=== PATIENT | male | born 1975 | race Caucasian/White ===

== ENCOUNTER 2021-03-20 23:49 | Inpatient (IN) | payer OTHER, SELFPAY ==
[2021-03-20 23:50] VITALS: BP 194/98; PULSE 93; RESP 16; TEMP 36.8; O2SAT 88; BMI 34.9
[2021-03-20 23:54] VITALS: O2SAT 92
[2021-03-21] VITALS (37 sets, daily range): BP systolic 157–175; BP diastolic 73–106; PULSE 78–108; RESP 12–50; TEMP 36–36.8; O2SAT 87–96; BMI 35.5
--- NOTE | 2021-03-21 00:23 | RAD_ITS ---
STUDY: X-RAY CHEST REASON FOR EXAM: Male, 45 years old. Dyspnea TECHNIQUE: Single AP portable view of the chest. COMPARISON: None. FINDINGS: The lungs are normally distended. There is density in the right lower lobe most likely representing confluence of markings, cannot exclude early infiltrate. Remainder of the lung crum are clear. There is no demonstrated pleural abnormality. Normal size heart. Normal mediastinum and keily. Normal visualized pulmonary arteries. Normal visualized aortic arch and descending thoracic aorta. Normal visualized thoracic spine. Normal visualized ribs, clavicles, and shoulders. There is no demonstrated abnormality of the visualized soft tissue structures of the upper abdomen. RAD/Chest 1 View (Portable) IMPRESSION: Likely confluence of markings in the right lower lobe, cannot exclude early infiltrate. Clinical correlation recommended. Remainder of the exam unremarkable. Electronically Signed: Fanny Erickson MD at 2:06 EDT , Service support ,
--- NOTE | 2021-03-21 00:27 | ED.VIS.DYS ---
HPI History of Present Illness Chief Complaint: Shortness of Breath Informant: patient Onset/Context/Timing Onset: Yesterday Context: gradual Timing: Continuous Quality: Positive for Dyspnea on exertion and Wheezing Worsened by: Exertion Relieved by: Albuterol Associated Symptoms rhinorrhea, post nasal drip and sore throat; Negative for cough, fever, subjective or chills Chest Pain: Positive for Pressure Narrative Narrative: Patient presents with shortness of breath that has been getting worse since yesterday. Patient states he ran out of his albuterol inhaler and his home nebulizer broke. Patient states he gets short of breath with any exertion. Patient also states he feels like he is wheezing. Patient states albuterol seems to help with his breathing. Patient also admits to some sinus drainage which started 2 days ago and seem to trigger his asthma exacerbation. Patient does admit to some chest pressure. Patient also admits to some rhinorrhea. Patient states he has not received his COVID-19 vaccine. Patient denies any exposures to COVID-19. [facility] Medical History Asthma COPD (chronic obstructive pulmonary disease) Diabetes Home Medications atorvastatin 80 mg PO QHS 03/21/21 [History Last Taken Unknown] carvedilol 25 mg PO DAILY 03/21/21 [History Last Taken Unknown] lisinopril 40 mg PO DAILY 03/21/21 [History Last Taken Unknown] metformin 1,000 mg PO DAILY 03/21/21 [History Last Taken Unknown] Allergy/AdvReac Type Severity Reaction Status Date / Time No Known Allergies Allergy Verified 03/21/21 01:00 no surgical history Social History Smoking Status: Current every day smoker tobacco type: cigarettes ROS ROS ED Constitutional Constitutional ED: Denies chills or fever(s) Eyes Eyes: Denies blurry vision or change in vision ENT ENT ED: Reports rhinorrhea and sore throat Cardiovascular Cardiovascular: Reports chest pain; Denies palpitations Respiratory/Chest Respiratory/Chest: Reports dyspnea; Denies cough Gastrointestinal Gastrointestinal: Denies nausea or vomiting Genitourinary Genitourinary ED: Denies dysuria or hematuria Musculoskeletal Musculoskeletal: Denies back pain or neck pain Integumentary Denies abscess or rash Neurologic Neurologic: Denies headache(s) or weakness Allergic/Immunologic Allergic/Immunologic ED: Denies mouth swelling or urticaria EXAM Physical Exam Const Vital Signs: 03/20/21 23:50 03/20/21 23:54 03/21/21 00:38 Temperature 98.3 F Temperature Source Temporal Pulse Rate 93 85 Respiratory Rate 16 24 H Respiratory Effort Short of Breath Labored Respiratory Depth Normal Shallow Respiratory Pattern Normal Tachypnea Blood Pressure 194/98 H Blood Pressure Mean 130 Pulse Ox 88 88 Oxygen Delivery Method Room Air Room Air Room Air 03/21/21 00:58 Temperature Temperature Source Pulse Rate Respiratory Rate Respiratory Effort Respiratory Depth Respiratory Pattern Blood Pressure Blood Pressure Mean Pulse Ox 90 Oxygen Delivery Method Room Air Positive well nourished and well developed General Appearance ED: well developed HEENT Reports moist mucous membranes Neck supple and no JVD Resp normal respiratory effort Auscultation: wheezes expiratory wheezes and throughout Cardio regular rate, regular rhythm and no murmurs GI normal to inspection, nondistended, normoactive bowel sounds and non-tender Palpation: soft Extremity normal to inspection General Extremety ED: Negative for edema or tenderness General Extremity: Negative for edema Neuro oriented x3, CN's II-XII intact bilaterally and no sensory deficits noted Sensorium / Orientation: alert Motor Exam: strength 5/5 throughout Psych mental status grossly normal Skin no rashes or lesions noted MDM MDM MDM Narrative Medical decision making narrative: Arterial blood gas showed a pH of 7.309, PCO2 58.2, PO2 of 48.2, bicarb of 29.3, and O2 sat of 78.7 on room air. Patient was placed on a 50% Ventimask. Portable chest x-ray was obtained. There is 1 view. On my interpretation, there is a questionable right lower lobe infiltrate. Bony thorax is normal. There is no cardiomegaly. Radiologist also interpreted the x-ray and agrees. CBC shows a hemoglobin of 18.4 hematocrit 54.5. White blood cell count is normal. Comprehensive metabolic profile was essentially within normal limits. Lactate was normal. Blood cultures were obtained. Patient was started on Rocephin and Zithromax. Case was discussed with the hospitalist. She will admit the patient to her service. Patient understood and was agreeable with the plan. All questions were answered. Lab Data Attestation: I reviewed the patient's lab results. Labs: Laboratory Results - last 24 hr 03/21/21 03/21/21 03/21/21 00:45 00:45 00:45 WBC 9.5 RBC 5.95 Hgb 18.4 H* Hct 54.5 H MCV 91.6 MCH 30.9 MCHC 33.8 RDW Std Deviation 48.0 H RDW Coeff of Lindsey 14.1 Plt Count 182 MPV 10.2 Immature Gran % (Auto) 1.300 H Neut % (Auto) 79.8 H Lymph % (Auto) 10.3 L Bel[place] % (Auto) 8.1 Eos % (Auto) 0.0 Baso % (Auto) 0.5 Absolute Neuts (auto) 7.6 Absolute Lymphs (auto) 0.97 Nucleated RBC % 0 Diff Path Review May foll Sodium 134 L Potassium 4.2 Chloride 101 Carbon Dioxide 29.0 Anion Gap 4 L BUN 13 Creatinine 1.07 Estim Creat Clear Calc 106.39 Est GFR (MDRD) Af Amer 97 Est GFR (MDRD) Non-Af 80 BUN/Creatinine Ratio 12.1 Glucose 218 H Lactic Acid 0.6 Calcium 8.6 Total Bilirubin 0.70 AST 19 ALT 38 Alkaline Phosphatase 108 Total Protein 7.2 Albumin 3.2 Globulin 4.0 Albumin/Globulin Ratio 0.8 L ABG Data ABG results: ABG 03/21/21 00:56 Specimen Type ART Sample Site R Radial pH 7.31 L Bicarbonate Actual 29.3 H Total CO2 31 Base Excess 3 H O2 Saturation 79 L O2 % 21 ABG pCO2 58.2 H ABG pO2 48 L Nitin Test Positive O2 Delivery Device Room Air Radiography Chest X-Ray - ED: 1 View, Read by ED Physician, Read by Radiologist and Right Infiltrate Diagnostic Testing: Radiology Impression Chest X-Ray 03/21/21 00:23 IMPRESSION: Likely confluence of markings in the right lower lobe, cannot exclude early infiltrate. Clinical correlation recommended. Remainder of the exam unremarkable. Electronically Signed: Fanny Erickson MD at 2:06 EDT , Service support , Treatment and Re-Evaluation Vital Sign Attestation:: Vital signs were reviewed prior to admission. They are stable. Discharge Plan Dx/Rx/DC Orders Clinical Impression: Pneumonia, Hypoxia Disposition Disposition: Acute Care Hospital [facility]
[2021-03-21] MEDS: Albuterol 2.5 MG/3 ML VIAL.NEB. INHALATION ×3 (00:38→00:51)
[2021-03-21] MEDS: MethylPREDNISolone 125 MG/2 ML Vial 80 MG IV (00:47)
[2021-03-21 00:57] LABS: Absolute Lymphocyte Count 0.97 X10^3/uL (0.83-4.51); Absolute Neutrophil Count 7.6 X10^3/uL (2.0-7.7); Basophil# 0.05 X10^3/uL; Basophil% 0.5 % (0-1); Hematocrit 54.5 % (40-54); Hemoglobin 18.4 g/dL (13.0-16.5); Lymphocyte # 0.97 X10^3/ul (0.83-4.51); Lymphocyte % 10.3 % (19-41); Mean Corp Hgb Conc 33.8 g/dL (32-36); Mean Corpuscular Hgb 30.9 pg (27.0-32.0); Mean Corpuscular Volume 91.6 fL (80-94); Mean Platelet Vol. 10.2 fl (6.2-12.0); Monocyte# 0.77 X10^3/uL; Monocyte% 8.1 % (0-10); NRBC Flagged by Analyzer 0 % (0-5); Neutrophil # 7.55 X10^3/uL (2.7-7.7); Neutrophil % 79.8 % (47-70); Platelet Count 182 K/mm3 (150-450); RBC Distribution Width CV 14.1 % (11.6-14.6); Red Blood Count 5.95 M/mm3 (4.6-6.2)
[2021-03-21 01:06] LABS: Allen Test Positive; Base Excess 3 mmol/L (-2 to +2); Bicarbonate 29.3 mmol/L (22-26); Blood Gas Specimen Type ART; FI02 21; O2 Delivery Device Room Air; PO2 48 mmHG (75-100); SITE R Radial; SO2 79 % (95-99); Total Carbon Dioxide 31 mmol/L; pCO2 58.2 mmHg (35-45); pH 7.31 (7.35-7.45)
[2021-03-21 01:22] LABS: ALB/GLOB Ratio 0.8 RATIO (0.9-2.4); AST(SGOT) 19 U/L (15-37); Alanine Aminotransfer ALT/SGPT 38 U/L (16-61); Albumin, Serum 3.2 g/dL (3.2-5.0); Alkaline Phosphatase 108 U/L (45-117); Anion Gap 4 (5-15); BUN 13 mg/dL (7-18); BUN/Creat Ratio 12.1 RATIO (10-20); Calcium,Total 8.6 mg/dL (8.5-10.1); Chloride 101 mmol/L (98-107); Creatinine, Serum 1.07 mg/dL (0.70-1.30); EST Glomerular Filtration Rate 80 mL/min (>60); Est Glom Filt Rate - Afr Amer 97 mL/min (>60); Estimated Creatinine Clearance 106.39 ml/min; Glucose 218 mg/dL (74-106); Potassium 4.2 mmol/L (3.5-5.1); Protein, Total 7.2 g/dL (6.4-8.2); Sodium Level 134 mmol/L (136-145)
[2021-03-21 01:23] LABS: Differential Indicated SCAN CRITERIA MET; White Blood Count 9.5 K/mm3 (4.4-11.0)
[2021-03-21 01:42] LABS: Lactic Acid 0.6 mmol/L (0.4-1.9)
--- NOTE | 2021-03-21 02:36 | PCM.HP.STD ---
HPI - General General Date of Service: 03/21/21 Chief Complaint: Dyspnea, wheezing. HPI Narrative The patient is a 45 y/o M w/ PMHx: Asthma/COPD, Diabetes mellitus type II, Obesity, HTN, HLD, Tobacco use who presents to the [facility] ED on 03/21/21 with worsening shortness of breath over the last 48 hours noting to have run out of his out of albuterol inhaler with a nonfunctioning nebulizer at home with ongoing wheezing, worse with any exertion with mild rhinorrhea, postnasal drip and sore throat as well as chest tightness but no recent cough, fever, chills prompting eventual ED evaluation. Patient denies having received his COVID-19 vaccination. Is a cross country truck driver living in [place] and notes that he started having issues when he was driving through [place] with history of notable allergies/sinus issues. Work-up in the ED included T 98.3, heart rate 93, BP 194/98, respiratory rate 16-22, initially 88% on room air with improvement to 90% on room air, CBC with WBC 9.5, hemoglobin 18.4, platelet 182 with increased immature granulocytes, ABG with pH 7.31, bicarb 29.3, base excess 3, O2 saturation 79%, PCO2 58.2, PO2 48 performed on room air, CMP with sodium 134, glucose 218 otherwise not marked appearing hepatic profile, lactic acid 0.6, chest x-ray with likely confluence of markings right lower lobe however cannot exclude early infiltrate otherwise unremarkable, rapid SARS Covid antigen negative. In the ED patient ministered DuoNeb/albuterol therapies and Solu-Medrol regimen. [facility] Medical History Asthma COPD (chronic obstructive pulmonary disease) Diabetes HLD (hyperlipidemia) HTN (hypertension) Obesity Tobacco use Home Medications atorvastatin 80 mg PO QHS 03/21/21 [History Last Taken Unknown] carvedilol 25 mg PO DAILY 03/21/21 [History Last Taken Unknown] lisinopril 40 mg PO DAILY 03/21/21 [History Last Taken Unknown] metformin 1,000 mg PO DAILY 03/21/21 [History Last Taken Unknown] Allergy/AdvReac Type Severity Reaction Status Date / Time No Known Allergies Allergy Verified 03/21/21 01:00 Family History (Updated 03/21/21 @ 02:[address] Mone Contreras MD) Mother Heart disease Hypertension other (Patient does not know his father nor any of his paternal family history.) no surgical history Social History (Updated 03/21/21 @ 02:[address] Mone Contreras MD) household members: other details: Patient lives in [place] with his aunt. He is a truckdriver. Smoking Status: Current every day smoker tobacco type: cigarettes Smoking packs per day: 0.75 Smoking cigarettes per day: 15.0 Years smoked: 29 Smoking pack-years: 21.75 alcohol intake: never substance use type: does not use ROS ROS Narrative Admission Review of Systems: CONSTITUTIONAL: No weight loss, fever, chills, + weakness or fatigue. HEENT: Eyes: No visual loss, blurred vision, double vision or yellow sclerae. Ears, Nose, Throat: + sneezing, congestion, runny nose. No hearing loss or sore throat. SKIN: No rash or itching, lesions, wounds. CARDIOVASCULAR: No chest pain, chest pressure or chest discomfort, palpitations, edema, orthopnea, syncopal events. RESPIRATORY: + shortness of breath, wheezing, no marked cough, sputum, hemoptysis. GASTROINTESTINAL: No anorexia, nausea, vomiting or diarrhea, abdominal pain, melena, BRBPR. GENITOURINARY: No dysuria, frequency, urgency or retention. NEUROLOGICAL: No headache, dizziness, syncope, paralysis, ataxia, numbness or tingling in the extremities, focal weakness, change in bowel or bladder control, seizure. MUSCULOSKELETAL: No muscle, back pain, joint pain or stiffness. HEMATOLOGIC: No anemia, bleeding or bruising. LYMPHATICS: No enlarged nodes. No history of splenectomy. PSYCHIATRIC: No history of depression or anxiety. ENDOCRINOLOGIC: No reports of sweating, cold or heat intolerance. No polyuria or polydipsia. ALLERGIES: No history of asthma, hives, eczema or rhinitis. Vital Signs Vital Signs Vital Signs: 03/20/21 23:50 03/20/21 23:54 03/21/21 00:38 Temperature 98.3 F Temperature Source Temporal Pulse Rate 93 85 Respiratory Rate 16 24 H Respiratory Effort Short of Breath Labored Respiratory Depth Normal Shallow Respiratory Pattern Normal Tachypnea Blood Pressure 194/98 H Blood Pressure Mean 130 Pulse Ox 88 88 Oxygen Delivery Method Room Air Room Air Room Air 03/21/21 00:58 Temperature Temperature Source Pulse Rate Respiratory Rate Respiratory Effort Respiratory Depth Respiratory Pattern Blood Pressure Blood Pressure Mean Pulse Ox 90 Oxygen Delivery Method Room Air Weight Weight: 280 lb Body Mass Index (BMI) 34.9 Physical Exam Narrative Physical Examination: General: Awake, alert, oriented x 3 and cooperative, seated upright in the ED bed, increased work of breathing, accessory muscle usage, tripod position, oxygenation despite Ventimask mid 80s. Skin: Normal color, normal turgor, no icterus, no cyanosis except noted bilateral lower extremity venous stasis skin changes. HEENT: AT/NC, EOMI, PERRLA, moderately dry MM, no carotid bruits or JVD noted; however, habitus with thickened neck makes examination difficult. Lungs: Diffusely diminished, greater bases, end expiratory diffuse wheezing, increased work of breathing, accessory muscle usage, evident distress, no rales or rhonchi. Heart: Mildly tachycardic with regular rhythm; no gallop, rub audible. Abdomen: Soft, obese, NTTP, ND, distant normal BS, no obvious HSM; however, habitus makes examination difficult. Extremities: No cyanosis, clubbing, or edema. See skin, venous stasis skin changes. Neurological: Patient awake, alert, oriented as noted, cognitive function intact; pupils equally reactive to light and accommodation, cranial nerves II-XII grossly normal, moving all 4 extremities, no focal deficits, strength severely global decrease secondary to acute presentation. Psychiatric: Affect appears fatigued, evident respiratory distress, no acute evidence of depressive or anxiety feelings. Results Lab / Micro Data Result Diagrams: 03/21/21 00:45 03/21/21 00:45 Labs: Laboratory Results - last 24 hr 03/21/21 00:45: WBC 9.5, RBC 5.95, Hgb 18.4 H*, Hct 54.5 H, MCV 91.6, MCH 30.9, MCHC 33.8, RDW Std Deviation 48.0 H, RDW Coeff of Lindsey 14.1, Plt Count 182, MPV 10.2, Immature Gran % (Auto) 1.300 H, Neut % (Auto) 79.8 H, Lymph % (Auto) 10.3 L, Wright % (Auto) 8.1, Eos % (Auto) 0.0, Baso % (Auto) 0.5, Absolute Neuts (auto) 7.6, Absolute Lymphs (auto) 0.97, Nucleated RBC % 0, Diff Path Review December03/21/21 00:45: Sodium 134 L, Potassium 4.2, Chloride 101, Carbon Dioxide 29.0, Anion Gap 4 L, BUN 13, Creatinine 1.07, Estim Creat Clear Calc 106.39, Est GFR (MDRD) Af Amer 97, Est GFR (MDRD) Non-Af 80, BUN/Creatinine Ratio 12.1, Glucose 218 H, Calcium 8.6, Total Bilirubin 0.70, AST 19, ALT 38, Alkaline Phosphatase 108, Total Protein 7.2, Albumin 3.2, Globulin 4.0, Albumin/Globulin Ratio 0.8 L 03/21/21 00:45: Lactic Acid 0.6 Micro: Microbiology 03/21/21 00:55 Mucosa - Nose SARS-CoV-2 Antigen (Rapid) - Final ABG Data ABG results: ABG 03/21/21 00:56 Specimen Type ART Sample Site R Radial pH 7.31 L Bicarbonate Actual 29.3 H Total CO2 31 Base Excess 3 H O2 Saturation 79 L O2 % 21 ABG pCO2 58.2 H ABG pO2 48 L Nitin Test Positive O2 Delivery Device Room Air Radiology Impression Chest X-Ray 03/21/21 00:23 IMPRESSION: Likely confluence of markings in the right lower lobe, cannot exclude early infiltrate. Clinical correlation recommended. Remainder of the exam unremarkable. Electronically Signed: Fanny Erickson MD at 2:06 EDT , Service support , Assessment & Plan Assessment/Plan (1) Respiratory failure: QUALIFIERS: Chronicity: acute Respiratory failure complication: hypoxia and hypercapnia Qualified Code(s): J96.01 - Acute respiratory failure with hypoxia; J96.02 - Acute respiratory failure with hypercapnia PLAN: The patient is a 45 y/o M w/ PMHx: Asthma/COPD, Diabetes mellitus type II, Obesity, HTN, HLD, Tobacco use who presents to the [facility] ED on 03/21/21 with worsening shortness of breath over the last 48 hours noting to have run out of his out of albuterol inhaler with a nonfunctioning nebulizer at home with ongoing wheezing, worse with any exertion with mild rhinorrhea, postnasal drip and sore throat as well as chest tightness but no recent cough, fever, chills prompting eventual ED evaluation. 1. Acute Hypoxic and Hypercarbic Respiratory Failure secondary to Acute on Chronic Asthma/COPD exacerbation: Will admit to the PCU, will place on BIPAP, continue ATC duonebs, PRN albuterol, IV methylprednisolone, HOB, IS parameters, obtain respiratory viral panel, antigens, sputum culture, procalcitonin and given presentation/history with non-vaccinated COVID status will be cautious and obtain COVID PCR testing. Will hold on abx therapy pending work-up as noted. Bld Cx x 2 pending per ED. 2. Elevated BP without hypertensive history: Significantly elevated BP upon presentation, will continue monitor and if remains elevated will initiate oral regimen, in the interim as needed IV agents. 3. Diabetes mellitus type II: Need to clarify regimen, will obtain HgbA1c, in the interim maintain ADA diet, accu checks w/ ISS. 4. Tobacco Abuse: Encouraged cessation, inpatient consultation per RT, NR if desired. 5. Obesity: Weight loss and lifestyle changes encouraged. 6. Hypertension: Continue home regimen including lisinopril, Coreg with hold parameters, PRN hydralazine. 7. Hyperlipidemia: Continue patient on statin therapy. 8. DVT prophylaxis: SCDs, Lovenox. Charges/Coding Visit Charges Inpatient E&M: 35063 Init Hosp L3
[2021-03-21 03:24] LABS: Procalcitonin 0.11 ng/mL (0.00-0.09)
[2021-03-21] MEDS: 0.9% Normal Saline 1,000 ML 100 ML IV (03:41)
[2021-03-21 04:44] LABS: Probe Check PASS; Specimen Processing Control PASS
--- NOTE | 2021-03-21 05:13 | CPS ---
pt keeps requesting to lower the pressure on bipap. RT turned down 04/04 50% will try once again to get pt to wear bipap. RN aware.
[2021-03-21] MEDS: LORazepam 2 MG/ML Syringe 1 MG IV (05:23)
[2021-03-21] MEDS: 0.9% Saline Lock 10 ML Syringe IV (05:23)
[2021-03-21] MEDS: hydrALAZINE 20 MG/ML Vial 10 MG IV ×2 (06:03→18:10)
[2021-03-21] MEDS: Insulin Lispro 100 UNIT/ML INSULN.PEN SC ×4 (06:49→20:52)
--- NOTE | 2021-03-21 06:51 | CON.PCM.CC_ITS ---
Assessment & Plan Assessment/Plan (1) Acute respiratory failure with hypoxia and hypercapnia: PLAN: RECOMMENDATIONS: 1. Stop continuous IV fluids. 2. Continue patient on noninvasive positive pressure ventilatory support. Wean as tolerated. 3. Continue scheduled bronchodilator therapy. 4. Continue IV steroids. 5. Continue antihypertensive regimen. 6. DVT prophylaxis with Lovenox. IMPRESSIONS: 1. Acute combined respiratory failure, likely secondary to COPD exacerbation precipitated by rhinovirus infection The patient presented to the hospital with worsening dyspnea, wheezing and chest tightness. The patient was subsequently found to be positive for rhinovirus. He is likely experiencing a COPD exacerbation triggered by the viral infection. At the current time, the patient will be continued on noninvasive positive pressure ventilatory support as tolerated. Scheduled bronchodilators and IV steroids will also be continued. Goal to maintain oxygen saturations at or above 90%. 2. Polycythemia Unclear chronicity. However, I do suspect that this may be secondary to chronic hypoxemia. 3. Chronic tobacco dependency I personally spent 4 minutes discussing the deleterious effects of continued tobacco use with the patient, including modalities which could utilize to achieve a smoke-free lifestyle. Nicotine replacement therapy can be offered to the patient while admitted to the hospital. 4. Hypertension/hyperlipidemia/diabetes mellitus/obesity Complicates care, management, recovery and prognosis. Continue home medications as indicated. This note was generated with [employer] dictation software. It may contain incorrect words, spelling, and punctuation that were not noted in checking the note before signing. HPI Consult Data Date of Consult: 03/21/21 HPI Narrative Reason for Consultation: Acute combined respiratory failure HPI Narrative: The patient is a 45-year-old male, with a history as outlined below, who presented to the emergency department on March 20 with complaints of shortness of breath. The patient is a current everyday smoker. He has never been evaluated by a effervescent salts compounder in the past nor has he ever completed pulmonary function studies. He denies having been diagnosed with COPD previously. 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 The patient does report that he has access to both albuterol MDI and a nebulizer at his baseline. However, he recently ran out of his albuterol in his nebulizer is no longer functional. On presentation to the emergency department, the patient was noted to be afebrile, but was notably hypertensive with a presenting blood pressure of 194/98 mmHg. Initial laboratory evaluation revealed a normal white blood cell count. Hemoglobin was elevated to 18.4 g/dL. Chemistry profile was notable for a sodium of 134 and creatinine of 1.07. Liver function was within normal limits. Procalcitonin was noted to be 0.11. Coronavirus PCR was negative. Arterial blood gas obtained on room air revealed a pH of 7.31, PCO2 of 58 and PO2 of 48. Chest x-ray demonstrated no acute cardiopulmonary process or focal consolidation. Respiratory viral panel was positive for rhinovirus. The patient was initiated on BiPAP and placed on scheduled aerosol treatments and IV steroids. He was subsequently admitted to the progressive care unit for further management. [facility] Medical History Asthma COPD (chronic obstructive pulmonary disease) Diabetes HLD (hyperlipidemia) HTN (hypertension) Obesity Tobacco use Home Medications albuterol sulfate 2 puff INHALATION Q4H PRN PRN 03/21/21 [History Last Taken Unknown] atorvastatin 80 mg PO QHS 03/21/21 [History Last Taken Unknown] carvedilol 25 mg PO DAILY 03/21/21 [History Last Taken Unknown] lisinopril 40 mg PO DAILY 03/21/21 [History Last Taken Unknown] metformin 1,000 mg PO DAILY 03/21/21 [History Last Taken Unknown] Allergy/AdvReac Type Severity Reaction Status Date / Time No Known Allergies Allergy Verified 03/21/21 01:00 Family History (Updated 03/21/21 @ 02:[address] Mone Contreras MD) Mother Heart disease Hypertension Social History (Updated 03/21/21 @ 02:[address] Mone Contreras MD) household members: other details: Patient lives in [place] with his aunt. He is a truckdriver. Smoking Status: Current every day smoker tobacco type: cigarettes Smoking packs per day: 0.75 Smoking cigarettes per day: 15.0 Years smoked: 29 Smoking pack- years: 21.75 alcohol intake: never substance use type: does not use ROS Constitutional Constitutional: Denies chills, fever(s) or headache(s) Eyes Eyes: Denies blurry vision or change in vision ENT HEENT: Denies dizziness, epistaxis or loss taste/smell Cardiovascular Cardiovascular: Reports dyspnea Respiratory/Chest Respiratory/Chest: Reports chest tightness, cough, shortness of breath with exertion and wheezing Gastrointestinal Gastrointestinal: Denies abdominal pain, diarrhea, nausea or vomiting Genitourinary Genitourinary: Denies difficulty urinating Musculoskeletal Musculoskeletal: Denies arthralgias or back pain Integumentary Integumentary: Denies lesions, rash or skin ulcer Neurologic Neurologic: Denies abnormal gait or abnormal speech Psychiatric Psychiatric: Denies anxiety or depression Endocrine Endocrinology: Denies fatigue, polydipsia or polyuria Hematologic/Lymphatic Hematologic/Lymphatic: Denies easy bleeding or easy bruising Physical Exam Const alert General Appearance: cooperative, ill appearing and on BiPAP Nutritional Appearance: morbidly obese HEENT normocephalic and head/scalp atraumatic Eyes PERRL, EOMs intact bilaterally and conjunctivae normal Neck supple General: trachea midline Resp Effort and Inspection: tachypneic and labored Auscultation: wheezes throughout and diminished lung sounds Cardio regular rate and regular rhythm GI normal to inspection, nondistended, normoactive bowel sounds Extremity no clubbing, cyanosis or edema Skin no rashes or lesions noted Neuro no focal motor deficits Psych cooperative and affect normal Lab / Micro Data Result Diagrams: 03/21/21 00:45 03/21/21 00:45 Labs: Laboratory Results - last 24 hr 03/21/21 00:45: WBC 9.5, RBC 5.95, Hgb 18.4 H*, Hct 54.5 H, MCV 91.6, MCH 30.9, MCHC 33.8, RDW Std Deviation 48.0 H, RDW Coeff of Lindsey 14.1, Plt Count 182, MPV 10.2, Immature Gran % (Auto) 1.300 H, Neut % (Auto) 79.8 H, Lymph % (Auto) 10.3 L, [place] % (Auto) 8.1, Eos % (Auto) 0.0, Baso % (Auto) 0.5, Absolute Neuts (auto) 7.6, Absolute Lymphs (auto) 0.97, Nucleated RBC % 0, Diff Path Review December03/21/21 00:45: Sodium 134 L, Potassium 4.2, Chloride 101, Carbon Dioxide 29.0, Anion Gap 4 L, BUN 13, Creatinine 1.07, Estim Creat Clear Calc 106.39, Est GFR (MDRD) Af Amer 97, Est GFR (MDRD) Non-Af 80, BUN/Creatinine Ratio 12.1, Glucose 218 H, Calcium 8.6, Total Bilirubin 0.70, AST 19, ALT 38, Alkaline Phosphatase 108, Total Protein 7.2, Albumin 3.2, Globulin 4.0, Albumin/Globulin Ratio 0.8 L 03/21/21 00:45: Lactic Acid 0.6 03/21/21 00:45: Procalcitonin 0.11 H 03/21/21 02:48: COVID-19 (MARCY) Negative Micro: Microbiology 03/21/21 03:00 Mucosa - Nasopharyngeal Respiratory Panel (PCR) - Final Rhinovirus 03/21/21 Unknown Urine, Random Legionella Antigen - Final 03/21/21 Unknown Urine, Random Streptococcus pneumoniae Antigen (M - Final 03/21/21 00:55 Mucosa - Nose SARS-CoV-2 Antigen (Rapid) - Final ABG Data ABG results: ABG 03/21/21 00:56 Specimen Type ART Sample Site R Radial pH 7.31 L Bicarbonate Actual 29.3 H Total CO2 31 Base Excess 3 H O2 Saturation 79 L O2 % 21 ABG pCO2 58.2 H ABG pO2 48 L Nitin Test Positive O2 Delivery Device Room Air Radiology Impression Chest X-Ray 03/21/21 00:23 IMPRESSION: Likely confluence of markings in the right lower lobe, cannot exclude early infiltrate. Clinical correlation recommended. Remainder of the exam unremarkable. Electronically Signed: Fanny Erickson MD at 2:06 EDT , Service support , Charges/Coding Visit Charges Inpatient E&M: 64682 Init Hosp L3 Behavior Interventions Behavior Intervention: 79257 Smoking Cessation 3-10 min
[2021-03-21 06:55] LABS: Bedside Glucose 409 mg/dL (70-110)
[2021-03-21] MEDS: Lisinopril 40 MG Tablet PO (07:44)
[2021-03-21] MEDS: Carvedilol 25 MG Tablet PO (07:44)
[2021-03-21] MEDS: Famotidine 20 MG Tablet PO ×3 (07:45→20:50)
[2021-03-21 09:22] LABS: Absolute Lymphocyte Count 0.51 X10^3/uL (0.83-4.51); Basophil# 0.03 X10^3/uL; Basophil% 0.3 % (0-1); Lymphocyte # 0.51 X10^3/ul (0.83-4.51); Lymphocyte % 5.8 % (19-41); Mean Corp Hgb Conc 32.6 g/dL (32-36); Mean Corpuscular Hgb 30.2 pg (27.0-32.0); Mean Corpuscular Volume 92.7 fL (80-94); Mean Platelet Vol. 10.8 fl (6.2-12.0); Monocyte# 0.06 X10^3/uL; Monocyte% 0.7 % (0-10); NRBC Flagged by Analyzer 0 % (0-5); Neutrophil # 7.99 X10^3/uL (2.7-7.7); Neutrophil % 91.5 % (47-70); POSITIVE DIFFERENTIAL YES; Platelet Count 202 K/mm3 (150-450); RBC Distribution Width CV 14.3 % (11.6-14.6); RBC Distribution Width SD 48.6 fl (35.1-43.9); Red Blood Count 6.19 M/mm3 (4.6-6.2); White Blood Count 8.7 K/mm3 (4.4-11.0)
[2021-03-21 09:30] LABS: Differential Indicated SCAN CRITERIA MET; Hematocrit 57.4 % (40-54)
[2021-03-21 09:33] LABS: Hemoglobin 18.7 g/dL (13.0-16.5)
[2021-03-21 09:47] LABS: ALB/GLOB Ratio 0.7 RATIO (0.9-2.4); AST(SGOT) 14 U/L (15-37); Alanine Aminotransfer ALT/SGPT 37 U/L (16-61); Albumin, Serum 3.1 g/dL (3.2-5.0); Alkaline Phosphatase 118 U/L (45-117); Anion Gap 3 (5-15); BUN 14 mg/dL (7-18); BUN/Creat Ratio 11.7 RATIO (10-20); Calcium,Total 8.8 mg/dL (8.5-10.1); Chloride 100 mmol/L (98-107); EST Glomerular Filtration Rate 70 mL/min (>60); Est Glom Filt Rate - Afr Amer 85 mL/min (>60); Estimated Creatinine Clearance 94.87 ml/min; Globulin 4.3 g/dL (2.2-4.2); Glucose 340 mg/dL (74-106); Potassium 4.8 mmol/L (3.5-5.1); Protein, Total 7.4 g/dL (6.4-8.2); Sodium Level 133 mmol/L (136-145)
[2021-03-21 09:59] LABS: Differential Comment SCANNED
[2021-03-21 10:18] LABS: Hemoglobin A1c 8.7 % (3.8-5.6)
[2021-03-21] MEDS: Ipratropium/Albuterol Sulfate 3 ML AMPUL.NEB INHALATION ×4 (10:48→23:12)
--- NOTE | 2021-03-21 11:29 | PN.HOSP_ITS ---
Documented by User: Abbey Sahu NP, CREDIT REVIEW MANAGER-C 03/21/21 11:42 Subjective Subjective Patient seen and examined. Reports mild improvement in shortness of breath. Drowsy this morning. Denies fever, chills. On BiPAP. Objective Data Objective Data Vital Signs: Vital Signs Temp Pulse Resp BP Pulse Ox 97.4 F L 86 24 H 157/101 H 94 03/21/21 10:00 03/21/21 10:49 03/21/21 10:49 03/21/21 10:00 03/21/21 10:49 Oxygen Flow Rate (L/min) 15 Oxygen Delivery Method Bi-pap Weight: 285 lb 15.033 oz Body Mass Index (BMI) 35.5 Intake & Output: Intake and Output for Last 24 Hours 03/19/21 03/20/21 03/21/21 23:59 23:59 23:59 Intake Total 1186.67 / 1186.67 Output Total 650 / 650 Balance 536.67 / 536.67 Medical Nutrition Assessment Dietitian: Nutrition Therapy Diagnosis Start: 03/21/21 10:19 Freq: Status: Active Protocol: Document 03/21/21 10:33 DARYA (Rec: 03/21/21 10:33 SLA [id number]) Nutrition Malnutrition Evidence of Malnutrition Exists No Clinical Problem Altered Nutrient-Related Laboratory Values Etiology related to diabetes Signs/Symptoms as evidenced by gluc 218 and A1c 8.7 Status Active Problem Recommendation Dietitian Recommendations/Changes Will change diet to Consistent CHO/Cardiac diet Lab / Micro Data Result Diagrams: 03/21/21 08:25 03/21/21 08:25 Labs: Laboratory Results - last 24 hr 03/21/21 00:45: WBC 9.5, RBC 5.95, Hgb 18.4 H*, Hct 54.5 H, MCV 91.6, MCH 30.9, MCHC 33.8, RDW Std Deviation 48.0 H, RDW Coeff of Lindsey 14.1, Plt Count 182, MPV 10.2, Immature Gran % (Auto) 1.300 H, Neut % (Auto) 79.8 H, Lymph % (Auto) 10.3 L, [place] % (Auto) 8.1, Eos % (Auto) 0.0, Baso % (Auto) 0.5, Absolute Neuts (auto) 7.6, Absolute Lymphs (auto) 0.97, Nucleated RBC % 0, Diff Path Review December foll 03/21/21 00:45: Sodium 134 L, Potassium 4.2, Chloride 101, Carbon Dioxide 29.0, Anion Gap 4 L, BUN 13, Creatinine 1.07, Estim Creat Clear Calc 106.39, Est GFR (MDRD) Af Amer 97, Est GFR (MDRD) Non-Af 80, BUN/Creatinine Ratio 12.1, Glucose 218 H, Calcium 8.6, Total Bilirubin 0.70, AST 19, ALT 38, Alkaline Phosphatase 108, Total Protein 7.2, Albumin 3.2, Globulin 4.0, Albumin/Globulin Ratio 0.8 L 03/21/21 00:45: Lactic Acid 0.6 03/21/21 00:45: Hemoglobin A1c 8.7 H 03/21/21 00:45: Procalcitonin 0.11 H 03/21/21 02:48: COVID-19 (MARCY) Negative 03/21/21 06:47: POC Glucose 409 H 03/21/21 08:25: WBC 8.7, RBC 6.19, Hgb 18.7 H*, Hct 57.4 H, MCV 92.7, MCH 30.2, MCHC 32.6, RDW Std Deviation 48.6 H, RDW Coeff of Lindsey 14.3, Plt Count 202, MPV 10.8, Immature Gran % (Auto) 1.700 H, Neut % (Auto) 91.5 H, Lymph % (Auto) 5.8 L , [place] % (Auto) 0.7, Eos % (Auto) 0.0, Baso % (Auto) 0.3, Absolute Neuts (auto) 8.0 H, Absolute Lymphs (auto) 0.51 L, Nucleated RBC % 0, Differential Comment SCANNED, Diff Path Review December foll 03/21/21 08:25: Sodium 133 L, Potassium 4.8, Chloride 100, Carbon Dioxide 30.0, Anion Gap 3 L, BUN 14, Creatinine 1.20, Estim Creat Clear Calc 94.87, Est GFR (MDRD) Af Amer 85, Est GFR (MDRD) Non-Af 70, BUN/Creatinine Ratio 11.7, Glucose 340 H, Calcium 8.8, Total Bilirubin 0.30, AST 14 L, ALT 37, Alkaline Phosphatase 118 H, Total Protein 7.4, Albumin 3.1 L, Globulin 4.3 H, Albumin/Globulin Ratio 0.7 L Micro: Microbiology 03/21/21 03:00 Mucosa - Nasopharyngeal Respiratory Panel (PCR) - Final Rhinovirus 03/21/21 Unknown Urine, Random Legionella Antigen - Final 03/21/21 Unknown Urine, Random Streptococcus pneumoniae Antigen (M - Final 03/21/21 00:55 Mucosa - Nose SARS-CoV-2 Antigen (Rapid) - Final ABG Data ABG results: ABG 03/21/21 00:56 Specimen Type ART Sample Site R Radial pH 7.31 L Bicarbonate Actual 29.3 H Total CO2 31 Base Excess 3 H O2 Saturation 79 L O2 % 21 ABG pCO2 58.2 H ABG pO2 48 L Nitin Test Positive O2 Delivery Device Room Air Radiography Diagnostic Testing: Radiology Impression Chest X-Ray 03/21/21 00:23 IMPRESSION: Likely confluence of markings in the right lower lobe, cannot exclude early infiltrate. Clinical correlation recommended. Remainder of the exam unremarkable. Electronically Signed: Fanny Erickson MD at 2:06 EDT , Service support , Physical Exam Const oriented x3 and no apparent distress Constitutional Narrative: Drowsy Orientation / Consciousness: oriented to person, oriented to place and oriented to time HEENT normocephalic and moist oral mucous membranes Eyes PERRL, EOMs intact bilaterally and conjunctivae normal Neck no lymphadenopathy Resp Auscultation: wheezes and diminished lung sounds Cardio regular rate, regular rhythm and no murmurs Peripheral Pulses: pulses 2+ throughout GI normal to inspection, nondistended, normoactive bowel sounds, non-tender and non-distended GI Narrative: Obese Extremity normal to inspection Skin no rashes or lesions noted Lesions: no lesions Rashes: no rashes Trauma: no lacerations or abrasions Neuro CN's II-XII intact bilaterally, no focal motor deficits, no sensory deficits noted and deep tendon reflexes 2+ bilaterally Psych mental status grossly normal and affect normal Assessment & Plan Assessment/Plan (1) Acute respiratory failure with hypoxia and hypercapnia: PLAN: 1. Acute hypoxic and hypercapnic respiratory failure secondary to exacerbation of chronic COPD/asthma as a result of rhinovirus-Covid negative. Respiratory panel positive for rhinovirus. IV Solu-Medrol. Albuterol and DuoNeb aerosols. On BiPAP. Continue supplement oxygen to maintain O2 at above 90%. 2. Polycythemia- suspect secondary to chronic hypoxia and tobacco use. Trend CBC. 3. Type 2 diabetes mellitus-hemoglobin A1c 8.7%. On metformin 1000 mg daily. Accu-Cheks with sliding scale insulin. Will need increased oral regimen at discharge and continued Accu-Cheks. Add bedtime Lantus given hyperglycemia. 4. Hypertension-above goal, continue lisinopril, Coreg. As needed hydralazine for systolic blood pressure greater than 160. 5. Hyperlipidemia-continue statin. 6. Tobacco dependence- encouraged cessation. Nicotine replacement patch. 7. Obesity- encouraged diet and lifestyle modifications. Ginner Helper consult. DVT prophylaxis-Lovenox subcu This patient was seen by NICKY Moncada under the supervision of Dr. Sawyer. Documented by User: Dr. Farhan Sawyer MD 03/21/21 12:24 Objective Data Lab / Micro Data Result Diagrams: 03/21/21 08:25 03/21/21 08:25 Assessment & Plan Assessment/Plan (1) Acute respiratory failure with hypoxia and hypercapnia: Addt'l Comments This patient was seen in conjunction with NICKY Moncada . I have independently interviewed and examined the patient and reviewed pertinent historical, laboratory, and other data. Please refer to NICKY Moncada note for details of this patient's presentation, findings, and recommendations. I have reviewed NICKY Moncada note and concur with documented findings. In brief, patient is a 45-year-old admitted with progressive shortness of breath imaging studies obtained on admission demonstrated findings consistent with right lower lobe infiltrate admitted to monitored bed for further management Physical Examination: GENERAL: On BiPAP HEENT: Atraumatic; EYES; Anicteric, Normal Conjunctiva NECK; supple, normal thyroid, RESPIRATORY: Diminished to auscultation CARDIOVASCULAR: Regular S1 S2, GI: soft, normoactive bowel sounds, : No Renal angle tenderness; EXTREMITIES: No edema, no clubbing, MUSCULOSKELETAL: no muscle waisting NEURO: Awake; no lateralizing signs. SKIN: No Rash PSYCH; Flat affect Assessment: 1. Acute hypoxic and hypercapnic respiratory failure 2. Suspected pneumonia 3. Acute asthma exacerbation 4. Acute rhinovirus infection 5. Diabetes mellitus type 2 6. Essential hypertension 7. Dyslipidemia 8. Obesity with BMI of 35.7 9. Tobacco dependence 10. DVT prophylaxis Recommendations: 1. I have discussed the results of my overview and impressions with the patient 2. Options for management were reviewed Charges/Coding Visit Charges Inpatient E&M: 41403 Subs Hosp L3 Hospital Course Consultations Consultations: Consultations 03/21/21 06:38 Consult: Cocoa Bean Cleaner / Pulmonary Medicine Routine Consulting Provider: Mele Paulino Reason for Consult: Resp failure on BIPAP, COPD exacerbation EMERGENT Consult: No MD Notified: Yes Date Notified: 03/21/21 Time Notified: 06:38 Method of Notification: [email or web address]
[2021-03-21 11:46] LABS: Bedside Glucose 388 mg/dL (70-110)
--- NOTE | 2021-03-21 13:12 | CASEMGMT ---
JENI MERLOS assessment: Face to Face with patient for initial transition planning/care coordination assessment. JENI MERLOS introduced self and role at [facility], pt voices understanding and consent to assessment. Pt is sitting up in bed in no distress on high flow O2. Pt is A/Ox4 and answers all questions appropriately. Care providers, pharmacy, and demographics verified. Presentation: SOB, hx COPD, asthma Admitting dx: Acute resp failure, COPD, Asthma exac PCP: Terri in [place] Specialists: No current specialists [facility]erred [facility]acy: [facility] Insurance: [employer] Prescription Benefit: [employer] Living Will/HPOA: Pt states does not have LW/HPOA and declines info. 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 Pt states is independent with ADL's. Transportation: Pt states drives self and states no transportation concerns. DME/HHC: Pt states has a nebulizer but it is not functioning properly. Pt states no need for any further DME but states no preference for DME, if needed. Pt states no hx of HHC or SNF. Pt states no concerns with going home at time of discharge. Pt drives daytime caregiver. Pt states smokes 3-4 pack/day but does not drink ETOH. Pt states no further concerns/needs. CM to follow for any further discharge planning/needs. Advised pt to ask for CM if any further questions/concerns/needs arise, voices understanding. Pt Goal: Home Plan[place] JENI MERLOS
[2021-03-21 17:00] LABS: Bedside Glucose 307 mg/dL (70-110)
--- NOTE | 2021-03-21 20:02 | PCM.HOSP.N ---
Hospitalist Note Called per staff accountant. BP remains above goal, ongoing hydralazine administration needs, will add to start low dose HCTZ and may increase as needed or consider addition of norvasc pending repeat BPs and electrolytes.
[2021-03-21] MEDS: Atorvastatin Calcium 80 MG Tablet PO (20:52)
[2021-03-21 21:00] LABS: Bedside Glucose 372 mg/dL (70-110)
[2021-03-21] MEDS: hydroCHLOROthiazide 12.5mg 12.5 MG PO (22:27)
[2021-03-22] VITALS (27 sets, daily range): BP systolic 119–171; BP diastolic 49–101; PULSE 69–111; RESP 12–31; TEMP 35.9–36.9; O2SAT 92–98
[2021-03-22] MEDS: Ipratropium/Albuterol Sulfate 3 ML AMPUL.NEB INHALATION ×6 (03:20→22:32)
[2021-03-22] MEDS: 0.9% Saline Lock 10 ML Syringe IV ×3 (05:22→21:25)
[2021-03-22 06:11] LABS: Bedside Glucose 293 mg/dL (70-110)
--- NOTE | 2021-03-22 06:29 | PN.CC_ITS ---
Assessment & Plan Assessment/Plan (1) Acute respiratory failure with hypoxia and hypercapnia: PLAN: RECOMMENDATIONS: 1. Continue patient on noninvasive positive pressure ventilatory support, as needed. 2. Continue to wean supplemental oxygen to maintain saturations at or above 90%. 3. Continue scheduled bronchodilator therapy. 4. Continue IV steroids. 5. Continue antihypertensive regimen. 6. DVT prophylaxis with Lovenox. IMPRESSIONS: 1. Acute combined respiratory failure, likely secondary to COPD exacerbation precipitated by rhinovirus infection The patient presented to the hospital with worsening dyspnea, wheezing and chest tightness. The patient was subsequently found to be positive for rhinovirus. He is likely experiencing a COPD exacerbation triggered by the viral infection. The patient did initially require noninvasive positive pressure ventilatory support, but has been weaned to supplemental oxygen via nasal cannula. He continues to have extensive wheezing on exam. Plan to continue to wean supplemental oxygen to maintain saturations at or above 90%. Continue scheduled bronchodilator therapy and IV steroids. 2. Polycythemia Unclear chronicity. However, I do suspect that this may be secondary to chronic hypoxemia. 3. Chronic tobacco dependency Tobacco cessation counseling was provided. Nicotine replacement therapy can be offered to the patient while admitted to the hospital. 4. Hypertension/hyperlipidemia/diabetes mellitus/obesity Complicates care, management, recovery and prognosis. Continue home medications as indicated. This note was generated with [employer] dictation software. It may contain incorrect words, spelling, and punctuation that were not noted in checking the note before signing. Subjective Subjective The patient was seen and examined at the bedside this morning. Events from the last 24 hours have been reviewed. The patient is currently afebrile, hemodynamically stable and maintaining appropriate oxygen saturations on 10 L/min via nasal cannula. The patient was tolerant of BiPAP overnight. He is currently documented to be overall net -3 L for the hospital admission. He does continue to report the presence of dyspnea and cough. Objective Data Objective Data The patient's most recent lab work, culture data and imaging studies have all been personally reviewed. Rapid coronavirus antigen testing was negative. Strep and urine Legionella antigens were negative. Respiratory viral panel was positive for rhinovirus. Sputum culture is pending. Vital Signs: Vital Signs Temp Pulse Resp BP Pulse Ox 96.8 F L 83 20 H 139/89 H 97 03/22/21 06:00 03/22/21 06:00 03/22/21 06:00 03/22/21 06:00 03/22/21 06:00 Oxygen Flow Rate (L/min) 12 Oxygen Delivery Method Bi-pap Weight: 128.3 kg Body Mass Index (BMI) 35.5 Intake & Output: Intake and Output for Last 24 Hours 03/20/21 03/21/21 03/22/21 23:59 23:59 23:59 Intake Total 1546.67 / 1786.67 480 / 480 Output Total 3800 / 3800 1300 / 1300 Balance -2253.33 / -2013.33 -820 / -820 Medical Nutrition Assessment Dietitian: Nutrition Therapy Diagnosis Start: 03/21/21 10:19 Freq: Status: Active Protocol: Document 03/21/21 10:33 DARYA (Rec: 03/21/21 10:33 DARYA [id number]) Nutrition Malnutrition Evidence of Malnutrition Exists No Clinical Problem Altered Nutrient-Related Laboratory Values Etiology related to diabetes Signs/Symptoms as evidenced by gluc 218 and A1c 8.7 Status Active Problem Recommendation Dietitian Recommendations/Changes Will change diet to Consistent CHO/Cardiac diet Lab / Micro Data Attestation: I reviewed the patient's lab results. Result Diagrams: 03/22/21 07:02 03/22/21 07:02 Labs: Laboratory Results - last 24 hr 03/21/21 00:45: Hemoglobin A1c 8.7 H 03/21/21 06:47: POC Glucose 409 H 03/21/21 08:25: WBC 8.7, RBC 6.19, Hgb 18.7 H*, Hct 57.4 H, MCV 92.7, MCH 30.2, MCHC 32.6, RDW Std Deviation 48.6 H, RDW Coeff of Lindsey 14.3, Plt Count 202, MPV 10.8, Immature Gran % (Auto) 1.700 H, Neut % (Auto) 91.5 H, Lymph % (Auto) 5.8 L , [place] % (Auto) 0.7, Eos % (Auto) 0.0, Baso % (Auto) 0.3, Absolute Neuts (auto) 8.0 H, Absolute Lymphs (auto) 0.51 L, Nucleated RBC % 0, Differential Comment SCANNED, Diff Path Review December03/21/21 08:25: Sodium 133 L, Potassium 4.8, Chloride 100, Carbon Dioxide 30.0, Anion Gap 3 L, BUN 14, Creatinine 1.20, Estim Creat Clear Calc 94.87, Est GFR (MDRD) Af Amer 85, Est GFR (MDRD) Non-Af 70, BUN/Creatinine Ratio 11.7, Glucose 340 H, Calcium 8.8, Total Bilirubin 0.30, AST 14 L, ALT 37, Alkaline Phosphatase 118 H, Total Protein 7.4, Albumin 3.1 L, Globulin 4.3 H, Albumin/Globulin Ratio 0.7 L 03/21/21 11:31: POC Glucose 388 H 03/21/21 16:53: POC Glucose 307 H 03/21/21 20:44: POC Glucose 372 H 03/22/21 06:07: POC Glucose 293 H Micro: Microbiology 03/21/21 03:00 Mucosa - Nasopharyngeal Respiratory Panel (PCR) - Final Rhinovirus 03/21/21 Unknown Urine, Random Legionella Antigen - Final 03/21/21 Unknown Urine, Random Streptococcus pneumoniae Antigen (M - Final 03/21/21 00:55 Mucosa - Nose SARS-CoV-2 Antigen (Rapid) - Final Physical Exam Const alert Constitutional Narrative: Sitting upright in bed eating breakfast. General Appearance: cooperative Nutritional Appearance: morbidly obese HEENT normocephalic and head/scalp atraumatic Eyes PERRL, EOMs intact bilaterally and conjunctivae normal Neck supple General: trachea midline Resp no use of accessory muscles Auscultation: wheezes throughout and diminished lung sounds; Negative for rales or rhonchi Cardio regular rate and regular rhythm GI normal to inspection, nondistended, normoactive bowel sounds Extremity no clubbing, cyanosis or edema Skin no rashes or lesions noted Neuro no focal motor deficits Psych cooperative and affect normal Charges/Coding Visit Charges Inpatient E&M: 55999 Subs Hosp L2
[2021-03-22] MEDS: Insulin Lispro 100 UNIT/ML INSULN.PEN SC ×4 (06:33→21:14)
[2021-03-22 07:34] LABS: Absolute Lymphocyte Count 0.89 X10^3/uL (0.83-4.51); Absolute Neutrophil Count 12.9 X10^3/uL (2.0-7.7); Basophil# 0.02 X10^3/uL; Basophil% 0.1 % (0-1); Hematocrit 52.9 % (40-54); Hemoglobin 17.3 g/dL (13.0-16.5); Lymphocyte # 0.89 X10^3/ul (0.83-4.51); Lymphocyte % 6.1 % (19-41); Mean Corp Hgb Conc 32.7 g/dL (32-36); Mean Corpuscular Hgb 30.9 pg (27.0-32.0); Mean Corpuscular Volume 94.5 fL (80-94); Mean Platelet Vol. 10.4 fl (6.2-12.0); Monocyte# 0.63 X10^3/uL; Monocyte% 4.3 % (0-10); NRBC Flagged by Analyzer 0 % (0-5); Neutrophil % 88.3 % (47-70); Platelet Count 222 K/mm3 (150-450); RBC Distribution Width CV 14.7 % (11.6-14.6); RBC Distribution Width SD 50.7 fl (35.1-43.9); White Blood Count 14.6 K/mm3 (4.4-11.0)
[2021-03-22 07:53] LABS: Anion Gap 3 (5-15); BUN 27 mg/dL (7-18); BUN/Creat Ratio 20.8 RATIO (10-20); Calcium,Total 9.3 mg/dL (8.5-10.1); Chloride 99 mmol/L (98-107); EST Glomerular Filtration Rate 64 mL/min (>60); Est Glom Filt Rate - Afr Amer 77 mL/min (>60); Estimated Creatinine Clearance 87.57 ml/min; Glucose 295 mg/dL (74-106); Potassium 4.9 mmol/L (3.5-5.1); Sodium Level 132 mmol/L (136-145)
[2021-03-22] MEDS: Lisinopril 40 MG Tablet PO (08:16)
[2021-03-22] MEDS: hydroCHLOROthiazide 12.5mg 12.5 MG PO (08:17)
[2021-03-22] MEDS: Carvedilol 25 MG Tablet PO (08:17)
--- NOTE | 2021-03-22 09:58 | PN.HOSP_ITS ---
Documented by User: Abbey Sahu NP, MECHANICAL MAINTENANCE FOREMAN-C 03/22/21 10:09 Subjective Subjective Patient seen and examined. Reports improvement in breathing. On 10 L nasal cannula. Feels like his chest is tight however he is not able to bring up any sputum. Denies fever, chills. Objective Data Objective Data Vital Signs: Vital Signs Temp Pulse Resp BP Pulse Ox 98.5 F 86 20 H 170/101 H 96 03/22/21 08:00 03/22/21 08:00 03/22/21 08:00 03/22/21 08:00 03/22/21 08:00 Oxygen Flow Rate (L/min) 10 Oxygen Delivery Method Nasal Cannula Weight: 282 lb 13.649 oz Body Mass Index (BMI) 35.5 Intake & Output: Intake and Output for Last 24 Hours 03/20/21 03/21/21 03/22/21 23:59 23:59 23:59 Intake Total 1546.67 / 1786.67 480 / 480 Output Total 3800 / 3800 1300 / 1300 Balance -225.33 / 33 -820 / -820 Medical Nutrition Assessment Dietitian: Nutrition Therapy Diagnosis Start: 03/21/21 10:19 Freq: Status: Active Protocol: Document 03/21/21 10:33 DARYA (Rec: 03/21/21 10:33 DARYA [id number]) Nutrition Malnutrition Evidence of Malnutrition Exists No Clinical Problem Altered Nutrient-Related Laboratory Values Etiology related to diabetes Signs/Symptoms as evidenced by gluc 218 and A1c 8.7 Status Active Problem Recommendation Dietitian Recommendations/Changes Will change diet to Consistent CHO/Cardiac diet Lab / Micro Data Result Diagrams: 03/22/21 07:02 03/22/21 07:02 Labs: Laboratory Results - last 24 hr 03/21/21 00:45: Hemoglobin A1c 8.7 H 03/21/21 08:25: Differential Comment SCANNED, Diff Path Review December03/21/21 11:31: POC Glucose 388 H 03/21/21 16:53: POC Glucose 307 H 03/21/21 20:44: POC Glucose 372 H 03/22/21 06:07: POC Glucose 293 H 03/22/21 07:02: WBC 14.6 H, RBC 5.60, Hgb 17.3 H, Hct 52.9, MCV 94.5 H, MCH 30.9, MCHC 32.7, RDW Std Deviation 50.7 H, RDW Coeff of Lindsey 14.7 H, Plt Count 222, MPV 10.4, Immature Gran % (Auto) 1.200 H, Neut % (Auto) 88.3 H, Lymph % (Auto) 6.1 L, Otero % (Auto) 4.3, Eos % (Auto) 0.0, Baso % (Auto) 0.1, Absolute Neuts (auto) 12.9 H, Absolute Lymphs (auto) 0.89, Nucleated RBC % 0 03/22/21 07:02: Sodium 132 L, Potassium 4.9, Chloride 99, Carbon Dioxide 30.0, Anion Gap 3 L, BUN 27 H, Creatinine 1.30, Estim Creat Clear Calc 87.57, Est GFR (MDRD) Af Amer 77, Est GFR (MDRD) Non-Af 64, BUN/Creatinine Ratio 20.8 H, Glucose 295 H, Calcium 9.3 Micro: Microbiology 03/21/21 23:20 Sputum, Expectorated/Coughed Gram Stain - Final 03/21/21 03:00 Mucosa - Nasopharyngeal Respiratory Panel (PCR) - Final Rhinovirus 03/21/21 Unknown Urine, Random Legionella Antigen - Final 03/21/21 Unknown Urine, Random Streptococcus pneumoniae Antigen (M - Final 03/21/21 00:55 Mucosa - Nose SARS-CoV-2 Antigen (Rapid) - Final Physical Exam Const alert, oriented x3 and no apparent distress Orientation / Consciousness: awake, oriented to person, oriented to place and oriented to time HEENT normocephalic and moist oral mucous membranes Eyes PERRL, EOMs intact bilaterally and conjunctivae normal Neck no lymphadenopathy Resp Auscultation: wheezes and diminished lung sounds Cardio regular rate, regular rhythm and no murmurs Peripheral Pulses: pulses 2+ throughout GI normal to inspection, nondistended, normoactive bowel sounds, non-tender and non-distended Extremity normal to inspection Skin no rashes or lesions noted Lesions: no lesions Rashes: no rashes Trauma: no lacerations or abrasions Neuro CN's II-XII intact bilaterally, no focal motor deficits, no sensory deficits noted and deep tendon reflexes 2+ bilaterally Psych mental status grossly normal and affect normal Assessment & Plan Assessment/Plan (1) Acute respiratory failure with hypoxia and hypercapnia: PLAN: 1. Acute hypoxic and hypercapnic respiratory failure secondary to exacerbation of chronic COPD/asthma as a result of rhinovirus-Covid negative. Respiratory panel positive for rhinovirus. IV Solu-Medrol. Albuterol and DuoNeb aerosols. Continue supplement oxygen to maintain O2 at above 90%. Sputum culture ordered. Continue IS/PEP. 2. Polycythemia- suspect secondary to chronic hypoxia and tobacco use. Trend CBC. 3. Type 2 diabetes mellitus-hemoglobin A1c 8.7%. On metformin 1000 mg daily. Accu-Cheks with sliding scale insulin. Will need increased oral regimen at discharge and continued Accu-Cheks. Lantus added given hyperglycemia. 4. Hypertension-Continue lisinopril, Coreg. HCTZ added. As needed hydralazine for systolic blood pressure greater than 160. 5. Hyperlipidemia-continue statin. 6. Tobacco dependence- encouraged cessation. Nicotine replacement patch. 7. Obesity- encouraged diet and lifestyle modifications. Linotypist consult. DVT prophylaxis-Lovenox subcu This patient was seen by NICKY Moncada under the supervision of Dr. Sawyer. Documented by User: Dr. Farhan Sawyer MD 03/22/21 11:42 Objective Data Lab / Micro Data Result Diagrams: 03/22/21 07:02 03/22/21 07:02 Assessment & Plan Addt'l Comments This patient was seen in conjunction with NICKY Moncada . I have independently interviewed and examined the patient and reviewed pertinent historical, laboratory, and other data. Please refer to NICKY Moncada note for details of this patient's presentation, findings, and recommendations. I have reviewed NICKY Moncada note and concur with documented findings. In brief, patient is a 45-year-old admitted with progressive shortness of breath imaging studies obtained on admission demonstrated findings consistent with right lower lobe infiltrate admitted to monitored bed for further management 03/22/2021; patient seen much more awake and coherent compared to previous day however still remains significantly hypoxic with high oxygen demands Physical Examination: GENERAL: On BiPAP HEENT: Atraumatic; EYES; Anicteric, Normal Conjunctiva NECK; supple, normal thyroid, RESPIRATORY: Diminished to auscultation CARDIOVASCULAR: Regular S1 S2, GI: soft, normoactive bowel sounds, : No Renal angle tenderness; EXTREMITIES: No edema, no clubbing, MUSCULOSKELETAL: no muscle waisting NEURO: Awake; no lateralizing signs. SKIN: No Rash PSYCH; Flat affect Assessment: 1. Acute hypoxic and hypercapnic respiratory failure 2. Suspected pneumonia 3. Acute asthma exacerbation 4. Acute rhinovirus infection 5. Diabetes mellitus type 2 6. Essential hypertension 7. Dyslipidemia 8. Obesity with BMI of 35.7 9. Tobacco dependence 10. DVT prophylaxis Recommendations: 1. I have discussed the results of my overview and impressions with the patient 2. Options for management were reviewed Charges/Coding Visit Charges Inpatient E&M: 74689 Init Hosp L3
[2021-03-22] MEDS: guaiFENesin 1,200 MG Tablet 1200 MG PO ×2 (11:20→21:13)
[2021-03-22 11:25] LABS: Bedside Glucose 319 mg/dL (70-110)
[2021-03-22] MEDS: hydrALAZINE 20 MG/ML Vial 10 MG IV ×2 (17:00→21:25)
[2021-03-22 17:15] LABS: Bedside Glucose 323 mg/dL (70-110)
[2021-03-22] MEDS: Famotidine 20 MG Tablet PO (21:13)
[2021-03-22] MEDS: Atorvastatin Calcium 80 MG Tablet PO (21:21)
[2021-03-22 21:26] LABS: Bedside Glucose 387 mg/dL (70-110)
[2021-03-23] VITALS (18 sets, daily range): BP systolic 153–179; BP diastolic 87–94; PULSE 69–100; RESP 12–20; TEMP 36–36.7; O2SAT 90–99
[2021-03-23] MEDS: Ipratropium/Albuterol Sulfate 3 ML AMPUL.NEB INHALATION ×5 (03:14→19:35)
[2021-03-23] MEDS: 0.9% Saline Lock 10 ML Syringe IV ×3 (05:32→21:32)
[2021-03-23 06:35] LABS: Bedside Glucose 344 mg/dL (70-110)
[2021-03-23] MEDS: Insulin Lispro 100 UNIT/ML INSULN.PEN SC ×4 (06:44→21:30)
[2021-03-23] MEDS: Enoxaparin 40 MG/0.4 ML Syringe SC (09:28)
[2021-03-23] MEDS: Famotidine 20 MG Tablet PO ×2 (09:29→21:32)
[2021-03-23] MEDS: Carvedilol 25 MG Tablet PO ×2 (09:29→21:32)
[2021-03-23] MEDS: guaiFENesin 1,200 MG Tablet 1200 MG PO ×2 (09:29→21:31)
[2021-03-23] MEDS: Lisinopril 40 MG Tablet PO (09:29)
--- NOTE | 2021-03-23 12:07 | PCM.PN.INT ---
Assessment & Plan Assessment/Plan (1) Acute respiratory failure with hypoxia and hypercapnia: PLAN: RECOMMENDATIONS: 1. Continue with empiric BiPAP with sleep 2. Continue to wean supplemental oxygen to maintain saturations at or above 90%. 3. Continue scheduled bronchodilator therapy. 4. Continue IV steroids. Will wean to every 12 hours with possible transition to prednisone tomorrow 5. Continue antihypertensive regimen. 6. DVT prophylaxis with Lovenox. IMPRESSIONS: 1. Acute combined respiratory failure, likely secondary to COPD exacerbation precipitated by rhinovirus infection The patient presented to the hospital with worsening dyspnea, wheezing and chest tightness. The patient was subsequently found to be positive for rhinovirus. He is likely experiencing a COPD exacerbation triggered by the viral infection. The patient did initially require noninvasive positive pressure ventilatory support, but has been weaned to supplemental oxygen via nasal cannula. He continues to have extensive wheezing on exam. Plan to continue to wean supplemental oxygen to maintain saturations at or above 90%. Continue scheduled bronchodilator therapy and IV steroids. Possibly transition to prednisone tomorrow 2. Polycythemia Likely secondary to chronic hypoxia associated with advanced lung disease. This has not been proven thus far and would work up as an outpatient. 3. Chronic tobacco dependency Tobacco cessation counseling was provided. Nicotine replacement therapy can be offered to the patient while admitted to the hospital. 4. Hypertension/hyperlipidemia/diabetes mellitus/obesity Complicates care, management, recovery and prognosis. Continue home medications as indicated. Consider increasing basal insulin. Defer to hospitalist. This note was generated with [employer] dictation software. It may contain incorrect words, spelling, and punctuation that were not noted in checking the note before signing. Subjective Subjective Patient did okay overnight. Patient's oxygen requirements have significantly improved over the last 24 hours. Patient denies any current chest pain, but is having a productive cough. No fevers have been reported overnight. Patient did use BiPAP with sleep. Objective Data Objective Data Vital Signs: Vital Signs Temp Pulse Resp BP Pulse Ox 36.2 C L 96 14 179/91 H 93 03/23/21 09:14 03/23/21 11:14 03/23/21 09:14 03/23/21 09:14 03/23/21 09:45 Oxygen Flow Rate (L/min) 3 Oxygen Delivery Method Nasal Cannula Weight: 126.4 kg Body Mass Index (BMI) 35.5 Intake & Output: Intake and Output for Last 24 Hours 03/21/21 03/22/21 03/23/21 23:59 23:59 23:59 Intake Total 1546.67 / 1786.67 680 / 680 0 / 0 Output Total 3800 / 3800 5775 / 5775 0 / 0 Balance -2253.33 - -5095 / -5095 0 / 0 Medical Nutrition Assessment Dietitian: Nutrition Therapy Diagnosis Start: 03/21/21 10:19 Freq: Status: Active Protocol: Document 03/21/21 10:33 DARYA (Rec: 03/21/21 10:33 DARYA [id number]) Nutrition Malnutrition Evidence of Malnutrition Exists No Clinical Problem Altered Nutrient-Related Laboratory Values Etiology related to diabetes Signs/Symptoms as evidenced by gluc 218 and A1c 8.7 Status Active Problem Recommendation Dietitian Recommendations/Changes Will change diet to Consistent CHO/Cardiac diet Lab / Micro Data Result Diagrams: 03/22/21 07:02 03/22/21 07:02 Labs: Laboratory Results - last 24 hr 03/22/21 16:50: POC Glucose 323 H 03/22/21 21:10: POC Glucose 387 H 03/23/21 06:30: POC Glucose 344 H Micro: Microbiology 03/21/21 23:20 Sputum, Expectorated/Coughed Gram Stain - Final 03/21/21 23:20 Sputum, Expectorated/Coughed Respiratory Culture - Preliminary Appears to be normal respiratory juvencio. Further studies to follow. 03/21/21 03:00 Mucosa - Nasopharyngeal Respiratory Panel (PCR) - Final Rhinovirus 03/21/21 Unknown Urine, Random Legionella Antigen - Final 03/21/21 Unknown Urine, Random Streptococcus pneumoniae Antigen (M - Final 03/21/21 00:55 Mucosa - Nose SARS-CoV-2 Antigen (Rapid) - Final Physical Exam Const alert, oriented x3 and no apparent distress Constitutional Narrative: Sitting upright in the chair General Appearance: cooperative and well developed Nutritional Appearance: obese centrally obese HEENT normocephalic, head/scalp atraumatic and moist oral mucous membranes Eyes PERRL and EOMs intact bilaterally Neck full ROM and no lymphadenopathy Chest inspection of chest normal Resp no use of accessory muscles Effort and Inspection: able to speak in complete sentences Auscultation: wheezes expiratory wheezes and throughout and diminished lung sounds; Negative for rales or rhonchi Percussion: Negative for dullness Cardio regular rate, regular rhythm, S1 normal heart sound, S2 normal heart sound, no murmurs, no rub and no gallops GI normal to inspection, nondistended, normoactive bowel sounds no CVA tenderness Extremity no clubbing, cyanosis or edema Skin no rashes or lesions noted Neuro oriented x3, CN's II-XII intact bilaterally, moves all extremities and no focal motor deficits Psych cooperative and affect normal Charges/Coding Visit Charges Inpatient E&M: 56978 Subs Hosp L2
--- NOTE | 2021-03-23 12:15 | PCM.PN.HOSP ---
Documented by User: Abbey Sahu DIRECTOR OF STRATEGIC COMMUNICATIONS, DIRECTOR OF STRATEGIC COMMUNICATIONS-C 03/23/21 12:33 Subjective Subjective Patient seen and examined. On 6 L nasal cannula. 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 Reports improvement in breathing. States cough is breaking up. Objective Data Objective Data Vital Signs: Vital Signs Temp Pulse Resp BP Pulse Ox 97.1 F L 96 16 179/91 H 93 03/23/21 09:14 03/23/21 11:14 03/23/21 11:07 03/23/21 09:14 03/23/21 09:45 Oxygen Flow Rate (L/min) 3 Oxygen Delivery Method Nasal Cannula Weight: 278 lb 10.629 oz Body Mass Index (BMI) 35.5 Intake & Output: Intake and Output for Last 24 Hours 03/21/21 03/22/21 03/23/21 23:59 23:59 23:59 Intake Total 1546.67 / 1786.67 680 / 680 0 / 0 Output Total 3800 / 3800 5775 / 5775 0 / 0 Balance -2253.33 / -5095 / -5095 0 / 0 Medical Nutrition Assessment Dietitian: Nutrition Therapy Diagnosis Start: 03/21/21 10:19 Freq: Status: Active Protocol: Document 03/21/21 10:33 DARYA (Rec: 03/21/21 10:33 DARYA [id number]) Nutrition Malnutrition Evidence of Malnutrition Exists No Clinical Problem Altered Nutrient-Related Laboratory Values Etiology related to diabetes Signs/Symptoms as evidenced by gluc 218 and A1c 8.7 Status Active Problem Recommendation Dietitian Recommendations/Changes Will change diet to Consistent CHO/Cardiac diet Lab / Micro Data Result Diagrams: 03/22/21 07:02 03/22/21 07:02 Labs: Laboratory Results - last 24 hr 03/22/21 16:50: POC Glucose 323 H 03/22/21 21:10: POC Glucose 387 H 03/23/21 06:30: POC Glucose 344 H Micro: Microbiology 03/21/21 23:20 Sputum, Expectorated/Coughed Gram Stain - Final 03/21/21 23:20 Sputum, Expectorated/Coughed Respiratory Culture - Preliminary Appears to be normal respiratory juvencio. Further studies to follow. 03/21/21 03:00 Mucosa - Nasopharyngeal Respiratory Panel (PCR) - Final Rhinovirus 03/21/21 Unknown Urine, Random Legionella Antigen - Final 03/21/21 Unknown Urine, Random Streptococcus pneumoniae Antigen (M - Final 03/21/21 00:55 Mucosa - Nose SARS-CoV-2 Antigen (Rapid) - Final Physical Exam Const alert, oriented x3 and no apparent distress Orientation / Consciousness: awake, oriented to person, oriented to place and oriented to time HEENT normocephalic and moist oral mucous membranes Eyes PERRL, EOMs intact bilaterally and conjunctivae normal Neck no lymphadenopathy Resp Auscultation: wheezes and diminished lung sounds Cardio regular rate, regular rhythm and no murmurs Peripheral Pulses: pulses 2+ throughout GI normal to inspection, nondistended, normoactive bowel sounds, non-tender and non-distended Extremity normal to inspection Skin no rashes or lesions noted Lesions: no lesions Rashes: no rashes Trauma: no lacerations or abrasions Neuro CN's II-XII intact bilaterally, no focal motor deficits, no sensory deficits noted and deep tendon reflexes 2+ bilaterally Psych mental status grossly normal and affect normal Assessment & Plan Assessment/Plan (1) Acute respiratory failure with hypoxia and hypercapnia: PLAN: 1. Acute hypoxic and hypercapnic respiratory failure secondary to exacerbation of chronic COPD/asthma as a result of rhinovirus-Covid negative. Respiratory panel positive for rhinovirus. IV Solu-Medrol. Albuterol and DuoNeb aerosols. Continue supplement oxygen to maintain O2 at above 90%. Continue IS/PEP. Home oxygen testing prior to discharge. 2. Polycythemia- suspect secondary to chronic hypoxia and tobacco use. Trend CBC. 3. Type 2 diabetes mellitus-hemoglobin A1c 8.7%. On metformin 1000 mg daily. Accu-Cheks with sliding scale insulin. Will need increased oral regimen at discharge and continued Accu-Cheks. Lantus added given hyperglycemia. 4. Hypertension-Continue lisinopril, Coreg. HCTZ added. Increase carvedilol to 25mg BID. As needed hydralazine for systolic blood pressure greater than 160. 5. Hyperlipidemia-continue statin. 6. Tobacco dependence- encouraged cessation. Nicotine replacement patch. 7. Obesity- encouraged diet and lifestyle modifications. Leaf Binner consult. DVT prophylaxis-Lovenox subcu This patient was seen by NICKY Moncada under the supervision of Dr. Moy. Documented by User: Dr. Jermoe Moy MD 03/23/21 13:22 Objective Data Lab / Micro Data Result Diagrams: 03/22/21 07:02 03/22/21 07:02 Charges/Coding Addendum Addendum: Dr. Moy: I personally reviewed the chart and examined the patient, and agree with the above findings. 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 He is feeling little bit better and his oxygenation has improved however he was requiring 6 L this morning and discussed that he would need to be less than 6 L to be able to have a portable concentrator. We will continue with steroids and bronchodilator therapy and will obtain an ambulatory pulse ox in the morning. Visit Charges Inpatient E&M: 87045 Subs Hosp L2
[2021-03-23 13:13] LABS: Pathologist Review Reviewed
[2021-03-23 13:15] LABS: Pathologist Review Reviewed
[2021-03-23 13:31] LABS: Bedside Glucose 387 mg/dL (70-110)
[2021-03-23] MEDS: amLODIPine 10 MG Tablet PO (15:18)
[2021-03-23] MEDS: hydroCHLOROthiazide 12.5mg 12.5 MG PO (16:53)
[2021-03-23] MEDS: Insulin Lispro 100 UNIT/ML INSULN.PEN 8 UNIT SC (16:57)
[2021-03-23 17:21] LABS: Bedside Glucose 232 mg/dL (70-110)
[2021-03-23] MEDS: Atorvastatin Calcium 80 MG Tablet PO (21:32)
[2021-03-23 21:40] LABS: Bedside Glucose 330 mg/dL (70-110)
[2021-03-24] VITALS (11 sets, daily range): BP systolic 137–159; BP diastolic 79–85; PULSE 77–94; RESP 12–20; TEMP 36.3–36.4; O2SAT 87–96
--- NOTE | 2021-03-24 06:12 | CPS ---
pt's mouth was too dry, nasal o2 applied 0220
[2021-03-24] MEDS: Ipratropium/Albuterol Sulfate 3 ML AMPUL.NEB INHALATION ×3 (06:56→15:30)
[2021-03-24 07:33] LABS: Anion Gap 3 (5-15); BUN 35 mg/dL (7-18); BUN/Creat Ratio 26.3 RATIO (10-20); Calcium,Total 9.3 mg/dL (8.5-10.1); Chloride 96 mmol/L (98-107); Creatinine, Serum 1.33 mg/dL (0.70-1.30); EST Glomerular Filtration Rate 62 mL/min (>60); Est Glom Filt Rate - Afr Amer 75 mL/min (>60); Estimated Creatinine Clearance 85.59 ml/min; Glucose 266 mg/dL (74-106); Potassium 4.5 mmol/L (3.5-5.1); Sodium Level 131 mmol/L (136-145)
[2021-03-24 08:10] LABS: Bedside Glucose 282 mg/dL (70-110)
--- NOTE | 2021-03-24 08:47 | PCM.PN.INT ---
Assessment & Plan Assessment/Plan (1) Acute respiratory failure with hypoxia and hypercapnia: PLAN: RECOMMENDATIONS: 1. Walking oximetry later today. Supplemental oxygen if indicated on discharge 2. Continue to wean supplemental oxygen to maintain saturations at or above 90%. 3. Continue scheduled bronchodilator therapy. 4. Okay to transition to prednisone on discharge. This should wean over the next 12 to 14 days 5. Continue antihypertensive regimen. 6. Patient will need follow-up in [place] by bacteriology professor for evaluation of RADHA and COPD. IMPRESSIONS: 1. Acute combined respiratory failure, likely secondary to COPD exacerbation precipitated by rhinovirus infection The patient presented to the hospital with worsening dyspnea, wheezing and chest tightness. The patient was subsequently found to be positive for rhinovirus. He is likely experiencing a COPD exacerbation triggered by the viral infection. The patient did initially require noninvasive positive pressure ventilatory support, but has been weaned to supplemental oxygen via nasal cannula. He continues to have extensive wheezing on exam. Plan to continue to wean supplemental oxygen to maintain saturations at or above 90%. Patient can be transitioned to prednisone on discharge. This should be weaned over the next 12 to 14 days. Supplemental oxygen is indicated by walking oximetry. Patient will need to follow-up with pulmonology when he arrives at home for RADHA and COPD. 2. Polycythemia Likely secondary to chronic hypoxia associated with advanced lung disease. This has not been proven thus far and would work up as an outpatient. 3. Chronic tobacco dependency Tobacco cessation counseling was provided. Nicotine replacement therapy can be offered to the patient while admitted to the hospital. 4. Hypertension/hyperlipidemia/diabetes mellitus/obesity Complicates care, management, recovery and prognosis. Continue home medications as indicated. Consider increasing basal insulin. Defer to hospitalist. Subjective Subjective Patient continues to improve from a respiratory standpoint. Supplemental oxygen demands are significantly down. Patient states he is reaching 2.5 L on incentive spirometer. Patient continues to have a productive cough, but feels his ambulation is much easier than previously noted. Patient does state that continuous oxygen will be a problem with his driving. Objective Data Objective Data Vital Signs: Vital Signs Temp Pulse Resp BP Pulse Ox 36.4 C L 77 20 H 137/79 H 93 03/24/21 03:20 03/24/21 07:00 03/24/21 06:56 03/24/21 03:20 03/24/21 06:56 Oxygen Flow Rate (L/min) 1.5 Oxygen Delivery Method Nasal Cannula Weight: 123.3 kg Body Mass Index (BMI) 35.5 Intake & Output: Intake and Output for Last 24 Hours 03/22/21 03/23/21 03/24/21 23:59 23:59 23:59 Intake Total 680 / 680 1600 / 1600 0 / 0 Output Total 5775 / 5775 0 / 0 Balance -5095 / -5095 1600 / 1600 0 / 0 Medical Nutrition Assessment Dietitian: Nutrition Therapy Diagnosis Start: 03/21/21 10:19 Freq: Status: Active Protocol: Document 03/21/21 10:33 DARYA (Rec: 03/21/21 10:33 [facility] [id number]) Nutrition Malnutrition Evidence of Malnutrition Exists No Clinical Problem Altered Nutrient-Related Laboratory Values Etiology related to diabetes Signs/Symptoms as evidenced by gluc 218 and A1c 8.7 Status Active Problem Recommendation Dietitian Recommendations/Changes Will change diet to Consistent CHO/Cardiac diet Lab / Micro Data Result Diagrams: 03/22/21 07:02 03/24/21 06:40 Labs: Laboratory Results - last 24 hr 03/21/21 00:45: Diff Path Review Reviewed 03/21/21 08:25: Diff Path Review Reviewed 03/23/21 13:18: POC Glucose 387 H 03/23/21 16:56: POC Glucose 232 H 03/23/21 21:29: POC Glucose 330 H 03/24/21 06:40: Sodium 131 L, Potassium 4.5, Chloride 96 L, Carbon Dioxide 32.0, Anion Gap 3 L, BUN 35 H, Creatinine 1.33 H, Estim Creat Clear Calc 85.59, Est GFR (MDRD) Af Amer 75, Est GFR (MDRD) Non-Af 62, BUN/Creatinine Ratio 26.3 H, Glucose 266 H, Calcium 9.3 03/24/21 07:59: POC Glucose 282 H Micro: Microbiology 03/21/21 23:20 Sputum, Expectorated/Coughed Gram Stain - Final 03/21/21 23:20 Sputum, Expectorated/Coughed Respiratory Culture - Final Presumptive C albicans 03/21/21 03:00 Mucosa - Nasopharyngeal Respiratory Panel (PCR) - Final Rhinovirus 03/21/21 Unknown Urine, Random Legionella Antigen - Final 03/21/21 Unknown Urine, Random Streptococcus pneumoniae Antigen (M - Final 03/21/21 00:55 Mucosa - Nose SARS-CoV-2 Antigen (Rapid) - Final Physical Exam Const alert, oriented x3 and no apparent distress Constitutional Narrative: Sitting upright in the chair General Appearance: cooperative and well developed Nutritional Appearance: obese centrally obese HEENT normocephalic, head/scalp atraumatic and moist oral mucous membranes Eyes PERRL and EOMs intact bilaterally Neck full ROM and no lymphadenopathy Chest inspection of chest normal Resp no use of accessory muscles Resp Narrative: Better air exchange compared to yesterday. Still has end expiratory wheezing noted. Effort and Inspection: able to speak in complete sentences Auscultation: wheezes expiratory wheezes and throughout and diminished lung sounds; Negative for rales or rhonchi Percussion: Negative for dullness Cardio regular rate, regular rhythm, S1 normal heart sound, S2 normal heart sound, no murmurs, no rub and no gallops GI normal to inspection, nondistended, normoactive bowel sounds no CVA tenderness Extremity no clubbing, cyanosis or edema Skin no rashes or lesions noted Neuro oriented x3, CN's II-XII intact bilaterally, moves all extremities and no focal motor deficits Psych cooperative and affect normal Charges/Coding Visit Charges Inpatient E&M: 07883 Subs Hosp L2
[2021-03-24] MEDS: Insulin Lispro 100 UNIT/ML INSULN.PEN 8 UNIT SC ×2 (08:52→13:24)
[2021-03-24] MEDS: Insulin Lispro 100 UNIT/ML INSULN.PEN SC ×2 (08:52→13:24)
[2021-03-24] MEDS: 0.9% Saline Lock 10 ML Syringe IV (08:58)
[2021-03-24] MEDS: Enoxaparin 40 MG/0.4 ML Syringe SC (09:00)
[2021-03-24] MEDS: amLODIPine 10 MG Tablet PO (09:07)
[2021-03-24] MEDS: Lisinopril 40 MG Tablet PO (09:07)
[2021-03-24] MEDS: Famotidine 20 MG Tablet PO (09:07)
[2021-03-24] MEDS: hydroCHLOROthiazide 12.5mg 12.5 MG PO (09:07)
[2021-03-24] MEDS: Carvedilol 25 MG Tablet PO (09:08)
[2021-03-24] MEDS: guaiFENesin 1,200 MG Tablet 1200 MG PO (09:08)
--- NOTE | 2021-03-24 12:00 | PCM.DC ---
Discharge Instructions Diet Discharge Diet: Low fat / Low cholesterol, 2000 mg Sodium Diet and Carb Control Diet Activity Discharge Activity: Return to Normal Activity Dressing / Incision Call your doctor if you observe: Shortness of breath, Dizziness and Chest pain Follow Up Care Test Results: Test results from this visit will be discussed in further detail at your follow-up appointment, if applicable. Discharge Plan Admission Admit Date/Time: 03/21/21 02:42 Primary Reason for Your Visit: COPD Attending Provider: Jerome Moy Primary Care Provider: Care Physician,No Primary Consulting Providers: Mele Paulino Discharge Orders/Prescriptions Prescriptions: New carvedilol 25 mg Tablet 25 mg PO BID Qty: 60 RF: 0 amlodipine 10 mg Tablet 10 mg PO DAILY Qty: 30 RF: 0 hydrochlorothiazide 12.5 mg Capsule 12.5 mg PO DAILY Qty: 30 RF: 0 prednisone 10 mg tablet See Taper mg PO DAILY Qty: 30 RF: 0 Continued atorvastatin 80 mg tablet 80 mg PO QHS RF: 0 lisinopril 40 mg tablet 40 mg PO DAILY RF: 0 albuterol sulfate 90 mcg/actuation HFA aerosol inhaler 2 puff INHALATION Q4H PRN PRN (Reason: Wheezing) Qty: 1 RF: 0 Changed metformin 1,000 mg tablet 1,000 mg PO BID Qty: 30 RF: 0 Discontinued carvedilol 25 mg tablet 25 mg PO DAILY RF: 0 Referrals / Follow Up: Care Physician,No Primary [Primary Care Provider] - In 1 Week Disposition Disposition (needs filled in before D/C Order can be placed): Home, Self Care
--- NOTE | 2021-03-24 12:53 | CASEMGMT ---
Addendum entered by Caroline Nielson 03/24/21 13:46: Pt given more duo nebs and re-tested for home oxygen by [facility] [employer] and per [facility], pt no longer qualifies for home oxygen at this time. Pt voices no further questions/concerns/needs. Plan is for discharge today. [facility] [employer] CM Original Note: Per [facility] [employer], pt does qualify for 1.5L continuous at this time. 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 Pt states he is 1200 miles from home. Brandi CAMARILLO updated and into room to speak with pt. [facility] [employer] CM
--- NOTE | 2021-03-24 13:20 | PCM.PN.HOSP ---
Objective Data Objective Data Vital Signs: Vital Signs Temp Pulse Resp BP Pulse Ox 97.3 F L 84 18 159/85 H 96 03/24/21 13:08 03/24/21 13:08 03/24/21 13:08 03/24/21 13:08 03/24/21 13:08 Oxygen Flow Rate (L/min) [ 1.5 AMBULATING with Oxygen #1] Oxygen Flow Rate (L/min) [At 1.5 REST with Oxygen] Oxygen Flow Rate (L/min) [At 0 REST on Room Air] Oxygen Flow Rate (L/min) 2 Oxygen Delivery Method Nasal Cannula Weight: 271 lb 13.279 oz Body Mass Index (BMI) 35.5 Intake & Output: Intake and Output for Last 24 Hours 03/22/21 03/23/21 03/24/21 23:59 23:59 23:59 Intake Total 680 / 680 1600 / 1600 0 / 0 Output Total 5775 / 5775 0 / 0 Balance -5095 / -5095 1600 / 1600 0 / 0 Medical Nutrition Assessment Dietitian: Nutrition Therapy Diagnosis Start: 03/21/21 10:19 Freq: Status: Active Protocol: Document 03/21/21 10:33 [facility] (Rec: 03/21/21 10:33 [facility] [id number]) Nutrition Malnutrition Evidence of Malnutrition Exists No Clinical Problem Altered Nutrient-Related Laboratory Values Etiology related to diabetes Signs/Symptoms as evidenced by gluc 218 and A1c 8.7 Status Active Problem Recommendation Dietitian Recommendations/Changes Will change diet to Consistent CHO/Cardiac diet Lab / Micro Data Result Diagrams: 03/22/21 07:02 03/24/21 06:40 Labs: Laboratory Results - last 24 hr 03/23/21 13:18: POC Glucose 387 H 03/23/21 16:56: POC Glucose 232 H 03/23/21 21:29: POC Glucose 330 H 03/24/21 06:40: Sodium 131 L, Potassium 4.5, Chloride 96 L, Carbon Dioxide 32.0, Anion Gap 3 L, BUN 35 H, Creatinine 1.33 H, Estim Creat Clear Calc 85.59, Est GFR (MDRD) Af Amer 75, Est GFR (MDRD) Non-Af 62, BUN/Creatinine Ratio 26.3 H, Glucose 266 H, Calcium 9.3 03/24/21 07:59: POC Glucose 282 H Micro: Microbiology 03/21/21 23:20 Sputum, Expectorated/Coughed Gram Stain - Final 03/21/21 23:20 Sputum, Expectorated/Coughed Respiratory Culture - Final Presumptive C albicans 03/21/21 03:00 Mucosa - Nasopharyngeal Respiratory Panel (PCR) - Final Rhinovirus 03/21/21 Unknown Urine, Random Legionella Antigen - Final 03/21/21 Unknown Urine, Random Streptococcus pneumoniae Antigen (M - Final 03/21/21 00:55 Mucosa - Nose SARS-CoV-2 Antigen (Rapid) - Final
--- NOTE | 2021-03-24 13:29 | DS.PCM_ITS ---
Documented by User: Abbey Sahu NP, [employer] 03/24/21 13:35 Providers Date of Admission: 03/21/21 Date of Discharge: 03/24/21 Primary Care Physician: No Primary Care Phys Consultations 03/21/21 06:38 Consult: Network Support / Pulmonary Medicine Routine Consulting Provider: Mele Paulino Reason for Consult: Resp failure on BIPAP, COPD exacerbation EMERGENT Consult: No MD Notified: Yes Date Notified: 03/21/21 Time Notified: 06:38 Method of Notification: cortext Reason For Visit: ACUTE RESPIRATORY FAILURE,COPD/ASTHMA EXACERBATION Diagnosis Discharge Diagnosis (1) Acute respiratory failure with hypoxia and hypercapnia: Status: Acute Code(s): J96.01 - Acute respiratory failure with hypoxia; J96.02 - Acute respiratory failure with hypercapnia Medications at Discharge Home Medications atorvastatin 80 mg PO QHS 03/21/21 lisinopril 40 mg PO DAILY 03/21/21 albuterol sulfate 2 puff INHALATION Q4H PRN PRN #1 g 03/24/21 amlodipine 10 mg PO DAILY #30 tab 03/24/21 carvedilol 25 mg PO BID #60 tab 03/24/21 hydrochlorothiazide 12.5 mg PO DAILY #30 cap 03/24/21 metformin 1,000 mg PO BID #30 tab 03/24/21 prednisone See Taper PO DAILY #30 tab 03/24/21 Hospital Course Operations None Procedures None Summary of Care Provided Minutes Spent on Discharge: 35 Hospital Course: Patient is a 45-year-old male admitted 03/21/2021 due to dyspnea and wheezing. 1. Acute hypoxic and hypercapnic respiratory failure secondary to exacerbation of chronic COPD/asthma as a result of rhinovirus-Covid negative. Respiratory panel positive for rhinovirus. IV Solu-Medrol during admission. Patient weaned off of oxygen. Oxygen testing completed prior to discharge and patient did not require further supplemental oxygen. Prednisone taper at discharge. Albuterol inhaler as needed until patient returns home and can use home nebulizer. Follow-up with PCP in 1 week. 2. Polycythemia- suspect secondary to chronic hypoxia and tobacco use. 3. Type 2 diabetes mellitus-hemoglobin A1c 8.7%. Metformin increased to 1000 mg twice daily. 4. Hypertension-Continue lisinopril, Coreg. HCTZ added. Increase carvedilol to 25mg BID. Amlodipine 10 mg daily added as well. Further PCP follow-up for blood pressure monitoring and medication adjustment. 5. Hyperlipidemia-continue statin. 6. Tobacco dependence- encouraged cessation. 7. Obesity- encouraged diet and lifestyle modifications. Director Of Acquisitions consult. Physical Exam Const alert, oriented x3 and no apparent distress Orientation / Consciousness: awake, oriented to person, oriented to place and oriented to time HEENT normocephalic and moist oral mucous membranes Eyes PERRL, EOMs intact bilaterally and conjunctivae normal Neck no lymphadenopathy Resp Auscultation: wheezes and diminished lung sounds Cardio regular rate, regular rhythm and no murmurs Peripheral Pulses: pulses 2+ throughout GI normal to inspection, nondistended, normoactive bowel sounds, non-tender and non-distended Extremity normal to inspection Skin no rashes or lesions noted Lesions: no lesions Rashes: no rashes Trauma: no lacerations or abrasions Neuro CN's II-XII intact bilaterally, no focal motor deficits, no sensory deficits noted and deep tendon reflexes 2+ bilaterally Psych mental status grossly normal and affect normal Patient seen and examined prior to discharge. Physical assessment as noted above. Patient is stable for discharge with follow up recommendations as noted above. This patient was seen by NICKY Moncada under the supervision of Dr. Moy. Medical Records Data Medical Nutrition Assessment Dietitian: Nutrition Therapy Diagnosis Start: 03/21/21 10:19 Freq: Status: Active Protocol: Document 03/21/21 10:33 [facility] (Rec: 03/21/21 10:33 [facility] [id number]) Nutrition Malnutrition Evidence of Malnutrition Exists No Clinical Problem Altered Nutrient-Related Laboratory Values Etiology related to diabetes Signs/Symptoms as evidenced by gluc 218 and A1c 8.7 Status Active Problem Recommendation Dietitian Recommendations/Changes Will change diet to Consistent CHO/Cardiac diet Weight / BMI Weight Weight: 271 lb 13.279 oz Body Mass Index (BMI) 35.5 ABG / Lab / Microbiology Data Result Diagrams: 03/22/21 07:02 03/24/21 06:40 Laboratory: Laboratory Results - last 24 hr 03/23/21 13:18: POC Glucose 387 H 03/23/21 16:56: POC Glucose 232 H 03/23/21 21:29: POC Glucose 330 H 03/24/21 06:40: Sodium 131 L, Potassium 4.5, Chloride 96 L, Carbon Dioxide 32.0, Anion Gap 3 L, BUN 35 H, Creatinine 1.33 H, Estim Creat Clear Calc 85.59, Est G FR (MDRD) Af Amer 75, Est GFR (MDRD) Non-Af 62, BUN/Creatinine Ratio 26.3 H, Glucose 266 H, Calcium 9.3 03/24/21 07:59: POC Glucose 282 H Microbiology: Microbiology 03/21/21 23:20 Sputum, Expectorated/Coughed Gram Stain - Final 03/21/21 23:20 Sputum, Expectorated/Coughed Respiratory Culture - Final Presumptive C albicans 03/21/21 03:00 Mucosa - Nasopharyngeal Respiratory Panel (PCR) - Final Rhinovirus 03/21/21 Unknown Urine, Random Legionella Antigen - Final 03/21/21 Unknown Urine, Random Streptococcus pneumoniae Antigen (M - Final 03/21/21 00:55 Mucosa - Nose SARS-CoV-2 Antigen (Rapid) - Final D/C Instructions Discharge Diet: Low fat / Low cholesterol, 2000 mg Sodium Diet and Carb Control Diet Call your doctor if you observe: Shortness of breath, Dizziness and Chest pain Meaningful Use Info Meaningful Use Diagnoses (Choose all that apply): None applicable Discharge Plan Admission Admit Date/Time: 03/21/21 02:42 Primary Reason for Your Visit: COPD Attending Provider: Jerome Moy Primary Care Provider: Care Physician,No Primary Consulting Providers: Mele Paulino Discharge Orders/Prescriptions Prescriptions: New carvedilol 25 mg Tablet 25 mg PO BID Qty: 60 RF: 0 amlodipine 10 mg Tablet 10 mg PO DAILY Qty: 30 RF: 0 hydrochlorothiazide 12.5 mg Capsule 12.5 mg PO DAILY Qty: 30 RF: 0 prednisone 10 mg tablet See Taper mg PO DAILY Qty: 30 RF: 0 Continued atorvastatin 80 mg tablet 80 mg PO QHS RF: 0 lisinopril 40 mg tablet 40 mg PO DAILY RF: 0 albuterol sulfate 90 mcg/actuation HFA aerosol inhaler 2 puff INHALATION Q4H PRN PRN (Reason: Wheezing) Qty: 1 RF: 0 Changed metformin 1,000 mg tablet 1,000 mg PO BID Qty: 30 RF: 0 Discontinued carvedilol 25 mg tablet 25 mg PO DAILY RF: 0 Referrals / Follow Up: Care Physician,No Primary [Primary Care Provider] - In 1 Week Disposition Disposition (needs filled in before D/C Order can be placed): Home, Self Care Documented by User: Dr. Jerome Moy MD 03/24/21 13:56 Providers Date of Admission: 03/21/21 Reason For Visit: ACUTE RESPIRATORY FAILURE,COPD/ASTHMA EXACERBATION Medications at Discharge Home Medications atorvastatin 80 mg PO QHS 03/21/21 lisinopril 40 mg PO DAILY 03/21/21 albuterol sulfate 2 puff INHALATION Q4H PRN PRN #1 g 03/24/21 amlodipine 10 mg PO DAILY #30 tab 03/24/21 carvedilol 25 mg PO BID #60 tab 03/24/21 hydrochlorothiazide 12.5 mg PO DAILY #30 cap 03/24/21 metformin 1,000 mg PO BID #30 tab 03/24/21 prednisone See Taper PO DAILY #30 tab 03/24/21 ABG / Lab / Microbiology Data Result Diagrams: 03/22/21 07:02 03/24/21 06:40 Discharge Plan Admission Admit Date/Time: 03/21/21 02:42 Primary Reason for Your Visit: COPD Attending Provider: Jerome Moy Primary Care Provider: Care Physician,No Primary Consulting Providers: Mele Paulino Discharge Orders/Prescriptions Prescriptions: New carvedilol 25 mg Tablet 25 mg PO BID Qty: 60 RF: 0 amlodipine 10 mg Tablet 10 mg PO DAILY Qty: 30 RF: 0 hydrochlorothiazide 12.5 mg Capsule 12.5 mg PO DAILY Qty: 30 RF: 0 prednisone 10 mg tablet See Taper mg PO DAILY Qty: 30 RF: 0 Continued atorvastatin 80 mg tablet 80 mg PO QHS RF: 0 lisinopril 40 mg tablet 40 mg PO DAILY RF: 0 albuterol sulfate 90 mcg/actuation HFA aerosol inhaler 2 puff INHALATION Q4H PRN PRN (Reason: Wheezing) Qty: 1 RF: 0 Changed metformin 1,000 mg tablet 1,000 mg PO BID Qty: 30 RF: 0 Discontinued carvedilol 25 mg tablet 25 mg PO DAILY RF: 0 Referrals / Follow Up: Care Physician,No Primary [Primary Care Provider] - In 1 Week Disposition Disposition (needs filled in before D/C Order can be placed): Home, Self Care Charges/Coding Addendum Addendum: Dr. Moy: I personally reviewed the chart and examined the patient, and agree with the above findings. 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 He is feeling little bit better and his oxygenation has improved however he was requiring 6 L this morning and discussed that he would need to be less than 6 L to be able to have a portable concentrator. We will continue with steroids and bronchodilator therapy and will obtain an ambulatory pulse ox in the morning. 03/24/2021: Doing well today. After a DuoNeb ambulation he did not require oxygen however before that ambulation he did require oxygen. Because a second ambulatory test did not demonstrate a need for oxygen he will not be discharged on oxygen secondary to lack of insurance approval. I did discuss with him extensively that he should use the rescue inhaler we are providing him as a nebulizer with 4 to 6 puffs every 4 hours while awake and also to continue with a prednisone taper. Continues to follow-up with his PCP down in [place] for further outpatient testing including an echo for evaluation of right-sided heart failure and pulmonary hypertension as well as outpatient sleep study for evaluation of likely obstructive sleep apnea. He expressed understanding of the risk benefits of going home today and would like to go home today. Visit Charges Inpatient E&M: 79138 Disch Hosp
[2021-03-24 13:36] LABS: Bedside Glucose 339 mg/dL (70-110)
--- NOTE | 2021-03-24 15:01 | PHA.DC.MC ---
Pharmacy Service has performed discharge medication reconciliation and counseling for this patient. 1. ALBUTEROL INHALER 2PUFFS Q4H PRN WHEEZING 2. AMLODIPINE 10MG PO DAILY 3. HYDROCHLOROTHIAZIDE 12.5MG PO DAILY 4. PREDNISONE 40MG X 3 DAYS, 30MG X 3 DAYS, 20MG X 3 DAYS, 10MG X 3 DAYS The patient's discharge medication list was reviewed for discrepancies and discrepancies were resolved. Home Medications atorvastatin 80 mg PO QHS 03/21/21 lisinopril 40 mg PO DAILY 03/21/21 albuterol sulfate 2 puff INHALATION Q4H PRN PRN #1 g 03/24/21 amlodipine 10 mg PO DAILY #30 tab 03/24/21 carvedilol 25 mg PO BID #60 tab 03/24/21 hydrochlorothiazide 12.5 mg PO DAILY #30 cap 03/24/21 metformin 1,000 mg PO BID #30 tab 03/24/21 prednisone See Taper PO DAILY #30 tab 03/24/21 The patient was counseled on the following discharge medications and changes in medications for homegoing were reviewed. The Reason for Use, instructions for use, and potential side effects were reviewed for all new medications. The patient's questions regarding all of their medications were answered. The patient was able to verbally demonstrate an understanding of their discharge medications.
== END 2021-03-24 16:05 | disposition home or self-care (01) | DRG 190 ==
LOC: ED 03-21 02:43 → PCU 03-21 07:18
PROVIDERS: Internal Medicine; Internal Medicine Critical Care Medicine; Admitting Provider Family Medicine; Emergency Provider Emergency Medicine; Visit Provider Family Medicine
DX: J44.1 Chronic obstructive pulmonary disease with (acute) exacerbation (principal); J96.01 Acute respiratory failure with hypoxia; J96.02 Acute respiratory failure with hypercapnia; D75.1 Secondary polycythemia; I10 Essential (primary) hypertension; B97.89 Other viral agents as the cause of diseases classified elsewhere; E11.65 Type 2 diabetes mellitus with hyperglycemia; J44.0 Chronic obstructive pulmonary disease with (acute) lower respiratory infection; F17.210 Nicotine dependence, cigarettes, uncomplicated; E66.9 Obesity, unspecified; E78.5 Hyperlipidemia, unspecified; Z79.899 Other long term (current) drug therapy; Z79.84 Long term (current) use of oral hypoglycemic drugs; Z68.35 Body mass index [BMI] 35.0-35.9, adult
CPT/HCPCS: 36415; 36600; 71045; 80048; 80053; 82803; 82962; 83036; 83605; 84145; 85025; 87070; 87205; 87426; 87449; 87633; 87635; 94002; 94003; 94640; 94667; 94668; 94762; 99251; 99285; J7030; J7050; U0005; A4216; G0463; J0696; U0003